=== PATIENT | female | born 1935 | race Caucasian/White ===

== ENCOUNTER 2016-11-23 13:16 | Inpatient (IN) ==
[2016-11-23 15:11] LABS: Bilirubin,Urine Negative (Negative); Blood,Urine Trace (Negative); Clarity,Urine Clear (Clear); Color,Urine Yellow (Yellow); Glucose,Urine (UA) Normal (Normal); Ketones,Urine Trace mg/dL (Negative); Leukocyte Esterase,Urine Small (Negative); Nitrite,Urine Negative (Negative); Protein,Urine Negative (Neg-Trace); Specific Gravity,Urine 1.011 (1.010-1.025); Urobilinogen,Urine Normal (Normal)
[2016-11-23 15:17] LABS: Bacteria,Urine Many per hpf (None-Few); Hyaline Casts,Urine None Seen per lpf (None-Few); RBC,Urine 0-3 per hpf (0-3); Squamous Epithelial Cell,Urine Moderate per lpf (None-Few)
[2016-11-23 15:21] LABS: Basophils % 0.1 %; Eosinophils % 0.1 %; Hematocrit 36.5 % (35.3-44.9); Hemoglobin 13.1 g/dL (11.5-15.4); Immature Granulocytes % 0.6 % (0-4); Lymphocytes # 1.6 K/mcL (0.6-4.6); Lymphocytes % 19.7 %; Mean Corpuscular HGB Conc 35.9 g/dL (31.6-35.5); Mean Corpuscular Hemoglobin 32.5 pg (28.0-33.3); Mean Corpuscular Volume 90.6 fL (83.0-100.0); Monocytes # 0.8 K/mcL (0.0-1.3); Monocytes % 9.8 %; Neutrophils # 5.7 K/mcL (1.6-8.9); Nucleated Red Blood Cells 0.2 /100 WBC (0); Platelet Count 308 K/mcL (140-400); Red Blood Count 4.03 M/mcL (3.82-4.97); Red Cell Distribution Width 12.3 % (11.5-14.5); Segmented Neutrophils % 69.7 %
[2016-11-23 15:25] LABS: Alanine Aminotransferase 14 Units/L (0-55); Albumin 3.6 g/dL (3.5-5.0); Albumin/Globulin Ratio 1.1 (1.1-2.2); Alkaline Phosphatase 93 Units/L (38-126); Aspartate Amino Transferase 20 Units/L (5-34); BUN/Creatinine Ratio 17 (6-26); Bilirubin,Direct 0.4 mg/dL (0.0-0.5); Bilirubin,Indirect 0.6 mg/dL (0.0-1.2); Blood Urea Nitrogen 13 mg/dL (7-20); Calcium 8.9 mg/dL (8.6-10.8); Carbon Dioxide 23 mEq/L (19-29); Chloride 84 mEq/L (98-109); Globulin 3.3 g/dL (2.4-3.5); Glucose 99 mg/dL (70-99); Osmolality,Calculated 240 (280-300); Potassium 3.5 mEq/L (3.5-4.5); Total Protein 6.9 g/dL (6.0-8.3); eGFR For African Americans > 60 (> 60); eGFR For Non-African Americans > 60 (> 60)
[2016-11-23 15:26] LABS: Lipase < 10 Units/L (8-78); Sodium 115 mEq/L (136-145)
[2016-11-23] MEDS ORDERED: *HR* FentaNYL (PF) 100 MCG/2 ML VIAL IVP ONE (15:35)
[2016-11-23 15:40] LABS: INR 1.7; Prothrombin Time 19.1 Seconds (9.4-12.1)
[2016-11-23 15:43] LABS: Activated Partial Thrombo Time 34.5 Seconds (26.0-36.0)
--- NOTE | 2016-11-23 17:22 | Emergency Department Note ---
Disposition Clinical Impression: Hyponatremia, Shortness of breath Volume overload Qualifiers: Hypervolemia type: unspecified Qualified Code(s): E87.70 - Fluid overload, unspecified Congestive heart failure Qualifiers: Congestive heart failure type: unspecified congestive heart failure type Congestive heart failure chronicity: acute on chronic Qualified Code(s): I50.9 - Heart failure, unspecified Disposition: Admitted As Inpatient Condition: Good Time of Disposition: 18:00 Abdominal Pain HPI - General Chief Complaint: ED Abdominal Pain Stated Complaint: abd pain Time Seen by Provider: 11/23/16 13:20 Source: patient, EMS Mode of arrival: ambulatory Limitations: no limitations Nursing Notes Reviewed: Yes Vital Signs Reviewed: Yes - History of Present Illness HPI Narrative: Patient presents to the generalized malaise and abdominal pain. She has been seen several times over the last couple days for dental discomfort was found to have a nonobstructing renal calculi. She feels like she still has the kidney stone at this point. Patient denies fevers chills chest pain headache or vision change. She has felt like she did use her oxygen more at home at this time. Patient does have underlying congestive heart failure. Denies any trauma or injuries at this time. Pt Subjective Complaint: abdominal pain Onset (ago): day(s) Consistency: constant Location: diffuse Pain Severity: mild Pain Scale: 2 Quality: cramping, aching Radiation: RLQ Migration to: no migration Improves with: nothing Worsens with: movement Context: history of similar episodes Associated symptoms: Reports: nausea, chills Treatments prior to arrival: none - Related Data Home Medications Medication Instructions Recorded Confirmed Celecoxib [Celebrex] 200 mg PO DAILY 02/17/15 11/23/16 Clopidogrel [Plavix] 75 mg PO DAILY 02/17/15 11/23/16 HydrALAZINE 25 mg PO BID 02/17/15 11/23/16 Isosorbide MONOnitrate (24 HR) 90 mg PO DAILY 02/17/15 11/23/16 [Imdur] Losartan [Cozaar] 100 mg PO DAILY 02/17/15 11/23/16 Metoprolol XL (24 HR) Succ [Toprol 50 mg PO BID 02/17/15 11/21/16 XL] Omeprazole [PriLOSEC] 20 mg PO BID 02/17/15 11/23/16 Pravastatin Sodium [Pravachol] 20 mg PO DAILY 02/17/15 11/23/16 Trevor-3 Fatty Acids [Fish Oil] 600 mg PO DAILY 11/21/16 11/23/16 Diltiazem HCl [Diltiazem 24Hr Cd] 180 mg PO DAILY 11/23/16 11/23/16 Furosemide [Lasix] 40 mg PO DAILY 11/23/16 11/23/16 Warfarin [Coumadin] 1 mg PO SUMOTUWEFRSA 11/23/16 11/23/16 Warfarin [Coumadin] 2 mg PO TH 11/23/16 11/23/16 Previous Rx's Medication Instructions Recorded Oxygen 2 l .ROUTE PRN PRN 30 Days 03/04/15 Sotalol [Betapace] 80 mg PO Q12HR #60 tablet 03/04/15 Clotrimazole/Betamethasone Dip 15 gm TP BID #1 cream..g. 11/21/16 [Lotrisone Cream] HYDROcodone/Acet 5/325 mg [[place] 1 tab PO Q6H PRN #12 tab 11/21/16 5-325 mg] Promethazine [Phenergan] 12.5 mg PO Q6HR PRN #12 tablet 11/21/16 Allergies Allergy/AdvReac Type Severity Reaction Status Date / Time codeine Allergy Rash Verified 11/21/16 11:27 morphine Allergy Rash Verified 11/21/16 11:27 Penicillins Allergy Rash Verified 11/21/16 11:27 meperidine [From Demerol] AdvReac Hallucinati Verified 11/21/16 11:27 ng All systems ED: reviewed and negative except as stated. Constitutional: Denies: fever, chills Cardiovascular: Reports: dyspnea on exertion, orthopnea, edema. Denies: chest pain, palpitations Respiratory: Reports: dyspnea. Denies: wheezes Gastrointestinal: Reports: abdominal pain, nausea. Denies: vomiting, diarrhea Genitourinary: Denies: dysuria, frequency Musculoskeletal: Denies: back pain, neck pain Neurological: Denies: headache Psychiatric: Denies: anxiety Endocrine: Denies: fatigue Abdominal Pain PMH - Past Medical History Medical history: Reports: atrial fibrillation, glaucoma, hypertension, kidney stones, renal disease Female Surgical History: Reports: cholecystectomy, hysterectomy Psychiatric history: Reports: no psych history - Social History Smoking status: Never smoker Alcohol use: Reports: none Drug use: Reports: none Physical Exam - General Limitations: no limitations General appearance: alert, in no apparent distress - Chest Chest inspection: Present: normal inspection, symmetric chest wall rise - Respiratory Respiratory exam: Present: normal lung sounds bilaterally, respiratory distress , accessory muscle use. Absent: wheezes, stridor - Cardiovascular Cardiovascular exam: Present: regular rate, normal rhythm, normal heart sounds - Abdominal Exam Abdominal exam: Present: soft, Non-Tender, normal bowel sounds. Absent: tenderness, distention, guarding, rebound, rigidity, obturator sign, heel tap sign, Bradford's sign, Rovsing's sign, tenderness at McBurney's Point, pulsatile mass - Extremities Exam Extremities exam: Present: normal inspection, full ROM, normal capillary refill - Back Exam Back exam: Present: normal inspection, full ROM. Absent: tenderness, CVA tenderness (R), CVA tenderness (L) - Neurological Exam Neurological exam: Present: alert, oriented X3, CN II-XII intact, normal gait - Skin Skin exam: Present: warm, dry, intact, normal color Course Course Narrative: Patient seen and examined the time of arrival. See history of present illness. Vital signs reviewed and are stable. Patient resting in the bed on presentation. Patient does appear to have some generalized malaise. Patient has been seen 3 times in the last 2 days her abdominal discomfort secondary to renal calculi. She has been increasing her fluid intake at home and resume medication as prescribed. Patient denies any fevers chills chest pain headache vision changes nausea vomiting or diarrhea at this point. Patient does describe some shortness of breath. 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 Patient has been requiring to use oxygen several times a day at this point is of increased work of breathing and shortness of breath. On my physical exam patient does appear to be visibly short of breath. Patient does have a history of CHF. Lungs clear to auscultation. Increased work of breathing noted on exam. Patient had chest x-ray EKG BNP and troponin CBC and chemistry panel completed. CT imaging of the abdomen observed. Fluids were held at this time the pain medication nausea medication (. My concern is that she fluid overload with CHF exacerbation at this point. Patient had what she described as a 2 mm nonobstructing stone previously on CAT scan. Patient is slightly uncomfortable in the bed at this point my concern is for respiratory related issues. We will continue to monitor and treat as appropriate. Disposition pending this workup and treatment course. - Reevaluation(s) Reevaluation #1: Patient found to be profoundly hyponatremic. CT imaging shows resolution of the renal stone no signs of hydronephrosis or infection. Patient does have bilateral pleural effusions consistent with pulmonary edema and fluid overload. Consultation placed out to the hospitalist for admission process. Discussed the findings imaging intervention and workup in the emergency room in detail. Dr. robles and I reviewed the patient's symptoms presentation and history. His only recommendation at this time is to start the patient with a 40 mg bolus of Lasix here in the ED. No other clinical management needed or required at this point. Patient's vital signs been stable throughout the course of care she is mentating appropriatelyand seizure-like activity. EKG labs and imaging were all reviewed with no other acute pathology. Patient will be observed in the emergency room to the admission process is completed. However acute issues noted at this time. Family and patient informed and they are comfortable with the plan and understand our disposition and treatment course. Time: 20:06 Vital Signs Temperature 98.3 F 11/23/16 13:17 Pulse Rate 81 11/23/16 13:17 Respiratory Rate 18 11/23/16 13:17 Blood Pressure 192/75 11/23/16 13:17 O2 Sat by Pulse Oximetry 97 11/23/16 13:17 Temperature 97.6 F 11/23/16 19:14 Pulse Rate 98 11/23/16 19:14 Respiratory Rate 20 11/23/16 19:14 Blood Pressure 162/74 11/23/16 19:14 O2 Sat by Pulse Oximetry 98 11/23/16 19:14 Oxygen Delivery Oxygen Delivery Nasal Cannula Abdominal Pain - MDM Narrative Medical decision making narrative: Hyponatremia, congestive heart failure, fluid overload - Medical Records Medical records reviewed: Yes I reviewed the patient's medical records. - Lab Data Lab results reviewed: Yes I reviewed the patient's lab results. Result diagrams: 11/23/16 15:12 11/23/16 15:12 Lab Results 11/23/16 11/23/16 11/23/16 Range/Units 14:30 15:00 15:00 WBC (4.3-11.1) K/mcL RBC (3.82-4.97) M/mcL Hgb (11.5-15.4) g/dL Hct (35.3-44.9) % MCV (83.0-100.0) fL MCH (28.0-33.3) pg MCHC (31.6-35.5) g/dL RDW (11.5-14.5) % Plt Count (140-400) K/mcL MPV (9.4-12.4) fL Immature Gran % (0-4) % Seg Neutrophils % % Lymphocytes % % Monocytes % % Eosinophils % % Basophils % % Neutrophils # (1.6-8.9) K/mcL Lymphocytes # (0.6-4.6) K/mcL Monocytes # (0.0-1.3) K/mcL Eosinophils # (0.0-0.6) K/mcL Basophils # (0.0-0.2) K/mcL Nucleated RBCs/100 WBC (0) /100 WBC Immature Plt Fraction (1.1-6.1) % PT (9.4-12.1) Seconds INR APTT (26.0-36.0) Seconds Sodium (136-145) mEq/L Potassium (3.5-4.5) mEq/L Chloride (98-109) mEq/L Carbon Dioxide (19-29) mEq/L BUN (7-20) mg/dL Creatinine (0.57-1.11) mg/dL Est GFR ( Amer) (> 60) Est GFR (Non-Af Amer) (> 60) BUN/Creatinine Ratio (6-26) Glucose (70-99) mg/dL Calculated Osmolality (280-300) Calcium (8.6-10.8) mg/dL Total Bilirubin (0.2-1.2) mg/dL Direct Bilirubin (0.0-0.5) mg/dL Indirect Bilirubin (0.0-1.2) mg/dL AST (5-34) Units/L ALT (0-55) Units/L Alkaline Phosphatase (38-126) Units/L Troponin I (0-0.03) ng/mL B-Natriuretic Peptide (0-100) pg/mL Serum Total Protein (6.0-8.3) g/dL Albumin (3.5-5.0) g/dL Globulin (2.4-3.5) g/dL Albumin/Globulin Ratio (1.1-2.2) Lipase (8-78) Units/L Urine Color Yellow (Yellow) Urine Clarity Clear (Clear) Urine pH 6.0 (5.0-8.0) pH Units Ur Specific [place] 1.011 (1.010-1.025) Urine Protein Negative (Neg-Trace) mg/dL Urine Glucose (UA) Normal (Normal) mg/dL Urine Ketones Trace H (Negative) mg/dL Urine Blood Trace H (Negative) Urine Nitrite Negative (Negative) Urine Bilirubin Negative (Negative) Urine Urobilinogen Normal (Normal) mg/dL Ur Leukocyte Esterase Small H (Negative) Urine Microscopic RBC 0-3 (0-3) per hpf Urine Microscopic WBC 5-15 H (0-3) per hpf Ur Squamous Epith Cells Moderate H (None-Few) per lpf Urine Bacteria Many H (None-Few) per hpf Hyaline Casts None Seen (None-Few) per lpf Ur Culture Indicated? YES A (NO) Urine Test Negative (Negative) Specimen Rejected MCV Delta 11/23/16 11/23/16 11/23/16 Range/Units 15:12 15:12 15:12 WBC 8.2 (4.3-11.1) K/mcL RBC 4.03 (3.82-4.97) M/mcL Hgb 13.1 (11.5-15.4) g/dL Hct 36.5 (35.3-44.9) % MCV 90.6 D (83.0-100.0) fL MCH 32.5 (28.0-33.3) pg MCHC 35.9 H (31.6-35.5) g/dL RDW 12.3 (11.5-14.5) % Plt Count 308 (140-400) K/mcL MPV 9.0 L (9.4-12.4) fL Immature Gran % 0.6 (0-4) % Seg Neutrophils % 69.7 % Lymphocytes % 19.7 % Monocytes % 9.8 % Eosinophils % 0.1 % Basophils % 0.1 % Neutrophils # 5.7 (1.6-8.9) K/mcL Lymphocytes # 1.6 (0.6-4.6) K/mcL Monocytes # 0.8 (0.0-1.3) K/mcL Eosinophils # 0.0 (0.0-0.6) K/mcL Basophils # 0.0 (0.0-0.2) K/mcL Nucleated RBCs/100 WBC 0.2 H (0) /100 WBC Immature Plt Fraction 5.0 (1.1-6.1) % PT 19.1 H (9.4-12.1) Seconds INR 1.7 APTT 34.5 (26.0-36.0) Seconds Sodium 115 L* D (136-145) mEq/L Potassium 3.5 D (3.5-4.5) mEq/L Chloride 84 L D (98-109) mEq/L Carbon Dioxide 23 (19-29) mEq/L BUN 13 (7-20) mg/dL Creatinine 0.78 (0.57-1.11) mg/dL Est GFR ( Amer) > 60 (> 60) Est GFR (Non-Af Amer) > 60 (> 60) BUN/Creatinine Ratio 17 (6-26) Glucose 99 (70-99) mg/dL Calculated Osmolality 240 L (280-300) Calcium 8.9 (8.6-10.8) mg/dL Total Bilirubin 1.0 D (0.2-1.2) mg/dL Direct Bilirubin 0.4 (0.0-0.5) mg/dL Indirect Bilirubin 0.6 (0.0-1.2) mg/dL AST 20 (5-34) Units/L ALT 14 (0-55) Units/L Alkaline Phosphatase 93 (38-126) Units/L Troponin I (0-0.03) ng/mL B-Natriuretic Peptide (0-100) pg/mL Serum Total Protein 6.9 (6.0-8.3) g/dL Albumin 3.6 (3.5-5.0) g/dL Globulin 3.3 (2.4-3.5) g/dL Albumin/Globulin Ratio 1.1 (1.1-2.2) Lipase < 10 (8-78) Units/L Urine Color (Yellow) Urine Clarity (Clear) Urine pH (5.0-8.0) pH Units Ur Specific [place] (1.010-1.025) Urine Protein (Neg-Trace) mg/dL Urine Glucose (UA) (Normal) mg/dL Urine Ketones (Negative) mg/dL Urine Blood (Negative) Urine Nitrite (Negative) Urine Bilirubin (Negative) Urine Urobilinogen (Normal) mg/dL Ur Leukocyte Esterase (Negative) Urine Microscopic RBC (0-3) per hpf Urine Microscopic WBC (0-3) per hpf Ur Squamous Epith Cells (None-Few) per lpf Urine Bacteria (None-Few) per hpf Hyaline Casts (None-Few) per lpf Ur Culture Indicated? (NO) Urine Test (Negative) Specimen Rejected 11/23/16 11/23/16 Range/Units 15:12 15:12 WBC (4.3-11.1) K/mcL RBC (3.82-4.97) M/mcL Hgb (11.5-15.4) g/dL Hct (35.3-44.9) % MCV (83.0-100.0) fL MCH (28.0-33.3) pg MCHC (31.6-35.5) g/dL RDW (11.5-14.5) % Plt Count (140-400) K/mcL MPV (9.4-12.4) fL Immature Gran % (0-4) % Seg Neutrophils % % Lymphocytes % % Monocytes % % Eosinophils % % Basophils % % Neutrophils # (1.6-8.9) K/mcL Lymphocytes # (0.6-4.6) K/mcL Monocytes # (0.0-1.3) K/mcL Eosinophils # (0.0-0.6) K/mcL Basophils # (0.0-0.2) K/mcL Nucleated RBCs/100 WBC (0) /100 WBC Immature Plt Fraction (1.1-6.1) % PT (9.4-12.1) Seconds INR APTT (26.0-36.0) Seconds Sodium (136-145) mEq/L Potassium (3.5-4.5) mEq/L Chloride (98-109) mEq/L Carbon Dioxide (19-29) mEq/L BUN (7-20) mg/dL Creatinine (0.57-1.11) mg/dL Est GFR ( Amer) (> 60) Est GFR (Non-Af Amer) (> 60) BUN/Creatinine Ratio (6-26) Glucose (70-99) mg/dL Calculated Osmolality (280-300) Calcium (8.6-10.8) mg/dL Total Bilirubin (0.2-1.2) mg/dL Direct Bilirubin (0.0-0.5) mg/dL Indirect Bilirubin (0.0-1.2) mg/dL AST (5-34) Units/L ALT (0-55) Units/L Alkaline Phosphatase (38-126) Units/L Troponin I 0.02 (0-0.03) ng/mL B-Natriuretic Peptide 442 H (0-100) pg/mL Serum Total Protein (6.0-8.3) g/dL Albumin (3.5-5.0) g/dL Globulin (2.4-3.5) g/dL Albumin/Globulin Ratio (1.1-2.2) Lipase (8-78) Units/L Urine Color (Yellow) Urine Clarity (Clear) Urine pH (5.0-8.0) pH Units Ur Specific [place] (1.010-1.025) Urine Protein (Neg-Trace) mg/dL Urine Glucose (UA) (Normal) mg/dL Urine Ketones (Negative) mg/dL Urine Blood (Negative) Urine Nitrite (Negative) Urine Bilirubin (Negative) Urine Urobilinogen (Normal) mg/dL Ur Leukocyte Esterase (Negative) Urine Microscopic RBC (0-3) per hpf Urine Microscopic WBC (0-3) per hpf Ur Squamous Epith Cells (None-Few) per lpf Urine Bacteria (None-Few) per hpf Hyaline Casts (None-Few) per lpf Ur Culture Indicated? (NO) Urine Test (Negative) Specimen Rejected - Radiology Data Radiology results reviewed: Yes I reviewed the patient's radiology results. Chest x-ray stable except for pulmonary congestion bilateral pleural effusion noted on CT scan. No signs of renal calculi or obstruction on CT imaging - EKG Data EKG attestation: Yes I reviewed and interpreted this EKG. EKG shows normal: sinus rhythm, axis, intervals, QRS complexes, ST-T waves Rate: normal Rhythm: NSR Critical Care Time Critical Care Time: Yes Total Critical Care Time: 35 Attestation: Independent medical management and intervention treatment course for profound hyponatremia and fluid overload
[2016-11-23] MEDS ORDERED: Furosemide 40 MG in 0.9 % Sodium Chloride 50 ML IVPB ONE (17:31)
[2016-11-23] MEDS ORDERED: Furosemide 40 MG/4 ML VIAL IVP ONE (17:43)
[2016-11-23] MEDS ORDERED: Ondansetron ODT 4 MG TAB.RAPDIS SL PRN (20:41)
[2016-11-23] MEDS ORDERED: Naloxone 0.4 MG/ML INJ IVP PRN (20:41)
--- NOTE | 2016-11-23 21:01 | Internal Med History&Physical ---
<Christian Almanza - Last Filed: 11/24/16 01:51> Date of Encounter: 11/23/16 Time of Encounter: 20:38 Assessment and Plan (1) Hyponatremia Current visit: Yes Status: Acute 81-year-old female admitted with abdominal discomfort, difficulty with ambulation, blurry vision mild confusion. - Admitting sodium level 115, this is the lowest of her previous sodiums with a low in the last 6 months of 124. - All medications reviewed of note she is on sotalol for rate control and 40 Lasix by mouth once a day - She received IV Lasix in the emergency department prior to transfer to the floor. - Bedside EKG obtained: Demonstrate normal sinus rhythm and rates, appropriate access no OR prolongation or QT widening. QTC is 427. 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 - Currently stable - Follows with [place] cardiology Plan: -Continue home cardiac medications and aspirin and Plavix. Qualifiers: Coronary Disease-Associated Artery/Lesion type: [place] artery [place] vs. transplanted heart: [place] heart Associated angina: without angina Qualified Code(s): I25.10 - Atherosclerotic heart disease of [place] coronary artery without angina pectoris (3) Hypertension Current visit: Yes Status: Chronic Patient has known history of hypertension, admitted with elevated blood pressure. Plan: - Continue home dose hydralazine by mouth - Ray control medications diltiazem and sotalol - continue losartan . Qualifiers: Hypertension type: essential hypertension Qualified Code(s): I10 - Essential (primary) hypertension (4) Hyperlipidemia Current visit: No Status: Chronic Known history of hyperlipidemia. Stable. Qualifiers: Hyperlipidemia type: unspecified Qualified Code(s): E78.5 - Hyperlipidemia , unspecified (5) ICD (implantable cardioverter-defibrillator) in place Current visit: No Status: Acute History of ICD placement, follows with cardiology. Recent device check. 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 - Last primary function test performed March 2015 demonstrates restrictive lung disease - Follows with [facility] - Patient's baseline oxygen is 2 L nasal cannula at rest and at night. - stable - continue oxygen as required (7) Abdominal pain Current visit: Yes Status: Acute Patient presented with abdominal discomfort, recent history of renal calculi. Abdominal CT imaging did not demonstrate any findings of renal calculi. Urinalysis is appropriate, creatinine and GFR are appropriate. - Abdominal CT without any significant findings. Plan: - Treat hyponatremia - Patient complaining of back pain more than abdominal discomfort. Qualifiers: Qualified Code(s): R10.9 - Unspecified abdominal pain (8) Congestive heart failure Current visit: Yes Status: Acute Patient is a documented history of congestive heart failure and is on Lasix along with optimized cardiac therapy. - No recent echocardiogram found - Appears slightly fluid overloaded, BNP is roughly 400. Plan: - Continue optimizing cardiac medications - Hold Lasix with hyponatremia - Patient receiving IV fluids with hyponatremia for sodium correction. Qualifiers: Congestive heart failure type: unspecified congestive heart failure type Congestive heart failure chronicity: acute on chronic Qualified Code(s): I50.9 - Heart failure, unspecified (9) Paroxysmal atrial fibrillation Current visit: Yes Status: Acute Patient has a history of proximal atrial fibrillation, currently normal sinus rhythm. currently rate controlled with sotalol and Cardizem. - Anticoagulation with warfarin, currently subtherapeutic with INR 1.7. Plan: - Pharmacy to dose warfarin - PT/INR - Continue rate control (10) DVT prophylaxis Current visit: Yes Status: Acute Patient on warfarin therapy, SCDs Internal Medicine - H&P: HPI Admitted From: Emergency Dept Plans for Post Hospital Care: Home History of present illness: Ms. Csatro is a 81 year old female admitted through the emergency department with abdominal pain. Patient states that she was seen in [place] emergency department on Monday and was told she had a right-sided renal stone. Since discharge from the emergency department on Monday she developed weakness and unsteadiness and abnormal gait, blurry vision and difficulty with thought process. She states that she is steadily been getting worse since Monday. She has been compliant with her home medications and denies any recent changes in her current medications. She said her current symptoms are new when she has never experienced any like this before. She has a history of low sodium. Her home dose of Lasix has been consistent and she sees cardiology Dr. Valdovinos. She has pacemaker/defibrillator which she is having difficulty remembering why it was placed but some arrhythmia. She has known history of coronary artery disease and renal artery stenosis. History of high blood pressure and proximal atrial fibrillation. 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 Currently she is rate controlled with sotalol. She denies any real abdominal pain but says she has feels abnormal all over. She said her abdominal pain has improved significantly since Monday and was told that she no longer has stone. She denies any fevers, chills, sweating, recent illnesses or infections. She has any changes to her medications, has been staying hydrated at home. She denies walking with any assist devices but said that she had been so unsteady that she would collapse and has been unable to make it to the bathroom. Past Med Surg Social Fam HX - Past Medical History Medical history: atrial fibrillation, glaucoma, hypertension, kidney stones, renal disease Psychiatric history: no psych history - Past Surgical History Surgical History: cholecystectomy, hysterectomy - Social History Smoking Status: Never smoker Smokeless Tobacco Status: No Alcohol use: none Drug use: none - Family History Father Adopted: No Family Member Ethnicity: Non- Living Status: Age at : 63 Cause of : [place] Hx Family Cardiac Disorders: Yes ([place], HTN) Hx Family Respiratory Disorders: No Hx Family Cancer: No Hx Family GI Disorders: Yes (Ulcers) Hx Family Genitourinary Disorders: No Hx Family Endocrine Disorder: No Hx Family Musculoskeletal Disorders: No Hx Family Neuromuscular Disorders: No Hx Family Neurologic Disorders: Yes (stroke) Hx Family HEENT Disorders: No Hx Family Autoimmune Disorders: No Hx Family Reproductive Disorders: No Hx Family Psychosocial Disorders: No Hx Family Medical Disorders: No Mother Adopted: No Family Member Ethnicity: Non- Living Status: Hx Family Cardiac Disorders: No Hx Family Respiratory Disorders: No Hx Family Cancer: No Hx Family GI Disorders: Yes Hx Family Endocrine Disorder: No Hx Family Neuromuscular Disorders: No Hx Family Neurologic Disorders: No Hx Family Autoimmune Disorders: No Internal Medicine - H&P: Meds Celecoxib [Celebrex] 200 mg PO DAILY 02/17/15 [History] Clopidogrel [Plavix] 75 mg PO DAILY 02/17/15 [History] HydrALAZINE 25 mg PO BID 02/17/15 [History] Isosorbide MONOnitrate (24 HR) [Imdur] 90 mg PO DAILY 02/17/15 [History] Losartan [Cozaar] 100 mg PO DAILY 02/17/15 [History] Metoprolol XL (24 HR) Succ [Toprol XL] 50 mg PO BID 02/17/15 [History] Omeprazole [PriLOSEC] 20 mg PO BID 02/17/15 [History] Pravastatin Sodium [Pravachol] 20 mg PO DAILY 02/17/15 [History] Oxygen 2 l .ROUTE PRN PRN 30 Days 03/04/15 [Rx] Sotalol [Betapace] 80 mg PO Q12HR #60 tablet 03/04/15 [Rx] Clotrimazole/Betamethasone Dip [Lotrisone Cream] 15 gm TP BID #1 cream..g. 11/21 [Rx] HYDROcodone/Acet 5/325 mg [Scurry 5-325 mg] 1 tab PO Q6H PRN #12 tab 11/21/16 [Rx ] Clever-3 Fatty Acids [Fish Oil] 600 mg PO DAILY 11/21/16 [History] Promethazine [Phenergan] 12.5 mg PO Q6HR PRN #12 tablet 11/21/16 [Rx] Diltiazem HCl [Diltiazem 24Hr Cd] 180 mg PO DAILY 11/23/16 [History] Furosemide [Lasix] 40 mg PO DAILY 11/23/16 [History] Warfarin [Coumadin] 1 mg PO SUMOTUWEFRSA 11/23/16 [History] Warfarin [Coumadin] 2 mg PO TH 11/23/16 [History] Allergies codeine Allergy (Verified 11/21/16 11:27) Rash morphine Allergy (Verified 11/21/16 11:27) Rash Penicillins Allergy (Verified 11/21/16 11:27) Rash meperidine [From Demerol] Adverse Reaction (Verified 11/21/16 11:27) Hallucinating All Systems PM: A 10-system review of systems was performed and is negative for pertinent findings except as documented above in the HPI. - Constitutional Constitutional: fatigue, falls, lethargy, malaise, no night sweats - EENT Eyes: blurry vision, change in vision, no diplopia, no loss of peripheral vision , no loss of vision, no photophobia, no tunnel vision Ears: no ear pain Nose, mouth and throat: no dry mouth, no dysphagia, no facial pain, no lip swelling, no neck pain, no sore throat - Cardiovascular Cardiovascular ROS IM: dyspnea, edema, no chest pain, no claudication, no diaphoresis, no orthopnea - Respiratory Respiratory: no cough, no wheezing, no chest congestion - Gastrointestinal Gastrointestinal: no constipation, no diarrhea, no excessive flatus, no hematochezia, no loose stools - Genitourinary Genitourinary: no dysuria, no hematuria, no urinary frequency - Musculoskeletal Musculoskeletal ROS IM: muscle weakness - Integumentary Integumentary IM: no erythema - Neurological Neurological ROS: abnormal gait, confusion, dizziness, frequent falls, no focal weakness - Constitutional Vitals: Temp Pulse Resp BP Pulse Ox 97.6 F 98 20 162/74 98 11/23/16 19:14 11/23/16 19:14 11/23/16 19:14 11/23/16 19:14 11/23/16 19:14 Exam: General: Patient alert, awake, oriented 3, difficulty with thought process, interactive, in no acute distress HEENT: Normocephalic, atraumatic, pupils equal reactive to light, nasal cavity patent and open septum median position, oral mucosa moist, uvula midline, neck supple trachea midline no palpable lymphadenopathy, no thyromegaly. Chest: Symmetric bilateral correlating with respiratory effort, effort nonlabored. Cardiac: Regular rate and rhythm, low-grade systolic ejection murmur, no bruits appreciated bilateral carotids, Radial pulses 2+ bilateral, posterior tibial and dorsal pedal pulses 2+ bilateral. Respiratory: Clear to auscultation all lung louise Abdomen: Soft, nontender, positive bowel sounds, no palpable masses appreciated on examination Extremities: Symmetric bilateral, bilateral lower extremities trace edema patient moving all 4 extremities spontaneously. Neurologic: No focal deficits appreciated on examination. Face symmetric, muscle strength symmetric bilateral upper and lower extremities. 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 Castro is a 81 year old female All Systems PM: A 10-system review of systems was performed and is negative for pertinent findings except as documented above in the HPI. - Constitutional Vitals: Temp Pulse Resp BP Pulse Ox 97.4 F L 63 20 165/57 97 11/24/16 04:23 11/24/16 06:00 11/24/16 06:00 11/24/16 06:00 11/24/16 06:00 Internal Med - H&P Results - Labs CBC & Chem 7: 11/24/16 01:39 11/24/16 01:39 Labs: Short CBC 11/24/16 Range/Units 01:39 WBC 9.4 (4.3-11.1) K/mcL Hgb 13.2 (11.5-15.4) g/dL Hct 36.7 (35.3-44.9) % Plt Count 260 (140-400) K/mcL Neutrophils # 6.2 (1.6-8.9) K/mcL BMP 11/23/16 11/24/16 21:03 01:39 Sodium 116 L* 119 L* Potassium 3.0 L 3.1 L Chloride 82 L 85 L Carbon Dioxide 22 23 BUN 13 13 Creatinine 0.78 0.81 Glucose 101 H 82 Calcium 8.7 8.7 Liver Function 11/24/16 Range/Units 01:39 Total Bilirubin 0.9 (0.2-1.2) mg/dL AST 29 (5-34) Units/L ALT 12 (0-55) Units/L Alkaline Phosphatase 90 (38-126) Units/L Albumin 3.6 (3.5-5.0) g/dL - EKG Data -: EKG Interpreted by Myself - Diagnostic Studies CT scan - abdomen Status: image reviewed by me Chest x-ray Status: image reviewed by me - Attending Attestation Patient has critical illness, with multiple vital organ impairment; mainly brain , cardiac and renal with a high probability of imminent or life threatening deterioration in her condition. I performed critical intervention, involving high complexity decision making to assess, manipulate, and support vital organ system failure; and I spent about 50 minutes engaged in work directly related to the patient's care at her immediate bedside and also on the unit, part of this time was also spent counseling immediate family, that time was spent at the immediate bedside or elsewhere on the floor and unit. Critical care time: 50 minutes Diego Lowe MD, MPH Hospitalist
[2016-11-23] MEDS: Ondansetron 4 MG/2 ML VIAL IVP PRN (21:09)
[2016-11-23] MEDS: 0.9 % Sodium Chloride 1,000 ML IVC SCH (21:10)
[2016-11-23] MEDS ORDERED: *HR* HYDROcodone/Acet 5/325 mg TABLET PO PRN (21:14)
[2016-11-23 21:19] LABS: Magnesium 1.4 mg/dL (1.6-2.6); Phosphorous 2.8 mg/dL (2.3-4.7)
[2016-11-23] MEDS: Acetaminophen 325 MG TABLET PO PRN (21:24)
[2016-11-23 21:29] LABS: Sodium 116 mEq/L (136-145)
[2016-11-23 21:54] LABS: BUN/Creatinine Ratio 17 (6-26); Blood Urea Nitrogen 13 mg/dL (7-20); Calcium 8.7 mg/dL (8.6-10.8); Carbon Dioxide 22 mEq/L (19-29); Chloride 82 mEq/L (98-109); Glucose 101 mg/dL (70-99); Osmolality,Calculated 242 (280-300); eGFR For African Americans > 60 (> 60); eGFR For Non-African Americans > 60 (> 60)
[2016-11-24 01:47] LABS: INR 1.5; Prothrombin Time 16.3 Seconds (9.4-12.1)
[2016-11-24 01:53] LABS: BUN/Creatinine Ratio 16 (6-26); Blood Urea Nitrogen 13 mg/dL (7-20); Calcium 8.7 mg/dL (8.6-10.8); Carbon Dioxide 23 mEq/L (19-29); Chloride 85 mEq/L (98-109); Glucose 82 mg/dL (70-99); Osmolality,Calculated 247 (280-300); Potassium 3.1 mEq/L (3.5-4.5); eGFR For African Americans > 60 (> 60); eGFR For Non-African Americans > 60 (> 60)
[2016-11-24 01:54] LABS: Sodium 119 mEq/L (136-145)
[2016-11-24 02:03] LABS: Alkaline Phosphatase 90 Units/L (38-126); Aspartate Amino Transferase 29 Units/L (5-34); Basophils % 0.1 %; Bilirubin,Total 0.9 mg/dL (0.2-1.2); Eosinophils % 0.3 %; Hematocrit 36.7 % (35.3-44.9); Hemoglobin 13.2 g/dL (11.5-15.4); Immature Granulocytes % 0.5 % (0-4); Lymphocytes # 1.8 K/mcL (0.6-4.6); Lymphocytes % 18.9 %; Mean Corpuscular Hemoglobin 32.5 pg (28.0-33.3); Mean Corpuscular Volume 90.4 fL (83.0-100.0); Mean Platelet Volume 9.3 fL (9.4-12.4); Monocytes # 1.3 K/mcL (0.0-1.3); Monocytes % 13.5 %; Neutrophils # 6.2 K/mcL (1.6-8.9); Platelet Count 260 K/mcL (140-400); Red Blood Count 4.06 M/mcL (3.82-4.97); Red Cell Distribution Width 12.4 % (11.5-14.5); Segmented Neutrophils % 66.7 %
[2016-11-24 02:04] LABS: Alanine Aminotransferase 12 Units/L (0-55); Albumin 3.6 g/dL (3.5-5.0)
[2016-11-24] MEDS: Acetaminophen 325 MG TABLET PO PRN ×2 (02:09→08:11)
[2016-11-24] MEDS ORDERED: Potassium Chloride Elixir 20 MEQ/15 ML UDC PO ONE (03:14)
[2016-11-24] MEDS: 0.9 % Sodium Chloride 1,000 ML IVC SCH (04:20)
[2016-11-24 06:56] LABS: BUN/Creatinine Ratio 16 (6-26); Blood Urea Nitrogen 12 mg/dL (7-20); Calcium 8.4 mg/dL (8.6-10.8); Carbon Dioxide 21 mEq/L (19-29); Chloride 90 mEq/L (98-109); Glucose 80 mg/dL (70-99); Osmolality,Calculated 251 (280-300); Potassium 4.2 mEq/L (3.5-4.5); Sodium 121 mEq/L (136-145); eGFR For African Americans > 60 (> 60); eGFR For Non-African Americans > 60 (> 60)
[2016-11-24 07:18] LABS: Thyroid Stimulating Hormone 1.344 mcIU/mL (0.350-4.840)
[2016-11-24] MEDS: Isosorbide MONOnitrate (24 HR) 30 MG TAB.ER.24H PO SCH (08:11)
[2016-11-24] MEDS: hydrALAZINE 25 MG TABLET PO SCH ×2 (08:12→20:08)
[2016-11-24] MEDS: Diltiazem CD (24hr) 180 MG CAPSULE PO SCH (08:12)
[2016-11-24] MEDS: Pantoprazole 40 MG VIAL IVP SCH (08:12)
[2016-11-24] MEDS: Celecoxib 200 MG CAPSULE PO SCH (08:26)
[2016-11-24 09:51] LABS: BUN/Creatinine Ratio 18 (6-26); Blood Urea Nitrogen 13 mg/dL (7-20); Calcium 8.1 mg/dL (8.6-10.8); Carbon Dioxide 21 mEq/L (19-29); Chloride 92 mEq/L (98-109); Glucose 85 mg/dL (70-99); Osmolality,Calculated 253 (280-300); Potassium 3.7 mEq/L (3.5-4.5); Sodium 122 mEq/L (136-145); eGFR For African Americans > 60 (> 60); eGFR For Non-African Americans > 60 (> 60)
[2016-11-24] MEDS: Clotrimazole/Betameth Dip CRM 45 APPL/45 GM TUBE TP SCH (11:49)
--- NOTE | 2016-11-24 11:52 | Electrocardiograph Report ---
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
--- NOTE | 2016-11-24 12:18 | Electrocardiograph Report ---
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
[2016-11-24] MEDS: *HR* OxyCODONE/APAP 5/325 TABLET PO PRN ×2 (12:24→20:08)
[2016-11-24 13:55] LABS: BUN/Creatinine Ratio 16 (6-26); Blood Urea Nitrogen 13 mg/dL (7-20); Calcium 8.3 mg/dL (8.6-10.8); Carbon Dioxide 19 mEq/L (19-29); Chloride 94 mEq/L (98-109); Glucose 115 mg/dL (70-99); Osmolality,Calculated 255 (280-300); Potassium 3.9 mEq/L (3.5-4.5); Sodium 122 mEq/L (136-145); eGFR For African Americans > 60 (> 60); eGFR For Non-African Americans > 60 (> 60)
--- NOTE | 2016-11-24 16:38 | Internal Med Progress Note ---
Addendum entered and electronically signed by Fred Castro DO 11/24/16 18: 11: Addendum to assessment and plan. Abdominal pain: Patient was recently diagnosed with renal calculi and has experienced abdominal discomfort associated with that diagnosis's. Abdominal CT imaging on admission did not demonstrate any current findings of renal calculi urinalysis is appropriate for this finding. The pain is more located in her back at this time. Pain medications help improve provided when necessary we will continue to monitor. Original Note: <Fred Castro - Last Filed: 11/24/16 18:09> Date of Encounter: 11/24/16 Time of Encounter: 09:30 - Assessment and plan (1) Hyponatremia Current Visit: Yes Status: Acute Assessment and plan: The patient presents to the emergency room with symptomatic hyponatremia including issues with confusion and disorientation, changes in each balance, and inability to focus. At that time her serum sodium was determined to be 116 by bmp. This is her in relation to previous sodiums and previous BMPs -In the emergency room she received IV Lasix prior to transfer to the floor. -Although initially determined to be probable SIADH, the etiology of his hyponatremia appears to be more mixed picture. The patient admits to drinking excessive amounts of water due to recommendation by the ER physician when she was diagnosed with renal calculi previously. She denies polydipsia at this time. Serum osmolality was 253 and urine osmolality was 215 this morning, and a specific gravity of 1.011, suggesting that this was not appear SIADH situation. -Patient is on strict intake and output monitoring and has maintained a -960 mL fluid balance. -Cardiac monitoring in place. BMPs every 4 hours. -IV fluids have been discontinued at this time. We will enforce a fluid restricted diet at 1500 mL per day, and resume normal diet. -We will aim for [place] of increasing sodium bicarbonate 8 every 24 hours. (2) Atrial fibrillation Current Visit: No Status: Chronic Assessment and plan: Patient has history of paroxysmal atrial fibrillation and is anticoagulated with warfarin. She currently has a subtherapeutic INR at 1.5. Warfarin is dosed by pharmacy was alerted of subtherapeutic INR and adjust dose accordingly. We will continue to monitor at this time. -Notably patient has remained in sinus rhythm throughout admission thus far. Qualifiers: Atrial fibrillation type: paroxysmal Qualified Code(s): I48.0 - Paroxysmal atrial fibrillation (3) Coronary artery disease Current Visit: No Status: Chronic Assessment and plan: Patient has known history of coronary artery disease, nonischemic cardiomyopathy , renal artery stenosis, and bilateral carotid stenosis. She is currently stable and follows with [place] [facility]. We will continue home cardiac medications of aspirin and Plavix Qualifiers: Coronary Disease-Associated Artery/Lesion type: [place] artery [place] vs. transplanted heart: [place] heart Associated angina: without angina Qualified Code(s): I25.10 - Atherosclerotic heart disease of [place] coronary artery without angina pectoris (4) Hypertension Current Visit: Yes Status: Chronic Assessment and plan: Patient has known history of hypertension, was admitted with high blood pressure. The patient's blood pressure has decreased to normal limits in the past 24 hours. We will continue her home dose of hydralazine by mouth as well as the medications diltiazem, sotalol, and losartan. Qualifiers: Hypertension type: essential hypertension Qualified Code(s): I10 - Essential (primary) hypertension (5) History of interstitial lung disease Current Visit: No Status: Chronic Assessment and plan: Patient admits to chronic lung injury due to medication with amiodarone in the past. She states that she has a baseline shortness of breath for which she follows [facility]. -Patient baseline oxygen is 2 L nasal cannula at rest and at night. We will continue this regimen as needed. (6) DVT prophylaxis Current Visit: Yes Status: Acute Assessment and plan: Patient is on SCDs - Subjective Interval history: Patient resting comfortably in bed and appears in no acute distress at time of examination this morning. She states that when she came to the ER she was feeling very woozy, lightheaded, confused, however she says that this is largely resolved. Patient was recently treated for small kidney stones, at which time the physician advised her to drink lots of water. At this time she said that she has urinating frequently and is not excessively thirsty. She does complain of back pain associated with laying in the bed. - Constitutional Vitals: Temp Pulse Resp BP Pulse Ox 98.3 F 59 18 126/47 96 11/24/16 11:38 11/24/16 15:00 11/24/16 15:00 11/24/16 15:00 11/24/16 15:00 - Head Head exam: Present: atraumatic, normocephalic - Eye Eye exam: Present: PERRL, conjuntiva pink, sclera anicteric Pupils: Present: PERRL - Neck Neck exam general surgery: Present: supple, trachea midline. Absent: lymphadenopathy - Respiratory Respiratory exam: Present: CTAB. Absent: accessory muscle use, rales, rhonchi, wheezes - Cardiovascular Cardiovascular exam: Present: RRR, +S1, +S2. Absent: diastolic murmur, gallop, rubs, systolic murmur - GI/Abdominal GI/Abdominal exam: Present: normal bowel sounds, soft, no peritoneal signs. Absent: distended, tenderness - Extremities Exam Extremities exam: Present: warm, radial pulses palpable and symetrical. Absent : calf tenderness, cyanotic Additional comments: +1 edema noted in external knees bilaterally. - Neurological Exam Neurological exam: Present: CN II-XII intact, oriented X3, no focal deficits. Absent: pronater drift, facial droop, speech deficit - Skin Skin exam: Present: dry, intact Internal Medicine: Result - Labs CBC & Chem 7: 11/24/16 01:39 11/24/16 13:30 Labs: Short CBC 11/24/16 Range/Units 01:39 WBC 9.4 (4.3-11.1) K/mcL Hgb 13.2 (11.5-15.4) g/dL Hct 36.7 (35.3-44.9) % Plt Count 260 (140-400) K/mcL Neutrophils # 6.2 (1.6-8.9) K/mcL BMP 11/23/16 11/24/16 11/24/16 21:03 01:39 05:54 Sodium 116 L* 119 L* 121 L Potassium 3.0 L 3.1 L 4.2 D Chloride 82 L 85 L 90 L Carbon Dioxide 22 23 21 BUN 13 13 12 Creatinine 0.78 0.81 0.77 Glucose 101 H 82 80 Calcium 8.7 8.7 8.4 L 11/24/16 11/24/16 09:14 13:30 Sodium 122 L 122 L Potassium 3.7 3.9 Chloride 92 L 94 L Carbon Dioxide 21 19 BUN 13 13 Creatinine 0.74 0.83 Glucose 85 115 H Calcium 8.1 L 8.3 L Liver Function 11/24/16 Range/Units 01:39 Total Bilirubin 0.9 (0.2-1.2) mg/dL AST 29 (5-34) Units/L ALT 12 (0-55) Units/L Alkaline Phosphatase 90 (38-126) Units/L Albumin 3.6 (3.5-5.0) g/dL - ABG Interpretation ABG results: PT/INR, D-dimer PT 16.3 Seconds (9.4-12.1) H 11/24/16 01:39 Consult Discharge Plan - Plan Referrals: Sascha Roberson MD [Primary Care Provider] - <FouziaRaymundoAdy - Last Filed: 11/24/16 20:38> Date of Encounter: 11/24/16 - Constitutional Vitals: Temp Pulse Resp BP Pulse Ox 97.8 F 58 24 130/60 99 11/24/16 19:46 11/24/16 19:46 11/24/16 19:46 11/24/16 19:46 11/24/16 19:46 Internal Medicine: Result - Labs CBC & Chem 7: 11/24/16 01:39 11/24/16 17:40 Labs: Short CBC 11/24/16 Range/Units 01:39 WBC 9.4 (4.3-11.1) K/mcL Hgb 13.2 (11.5-15.4) g/dL Hct 36.7 (35.3-44.9) % Plt Count 260 (140-400) K/mcL Neutrophils # 6.2 (1.6-8.9) K/mcL BMP 11/23/16 11/24/16 11/24/16 21:03 01:39 05:54 Sodium 116 L* 119 L* 121 L Potassium 3.0 L 3.1 L 4.2 D Chloride 82 L 85 L 90 L Carbon Dioxide 22 23 21 BUN 13 13 12 Creatinine 0.78 0.81 0.77 Glucose 101 H 82 80 Calcium 8.7 8.7 8.4 L 11/24/16 11/24/16 11/24/16 09:14 13:30 17:40 Sodium 122 L 122 L 124 L Potassium 3.7 3.9 3.4 L Chloride 92 L 94 L 94 L Carbon Dioxide 21 19 21 BUN 13 13 16 Creatinine 0.74 0.83 0.91 Glucose 85 115 H 126 H Calcium 8.1 L 8.3 L 8.4 L Liver Function 11/24/16 Range/Units 01:39 Total Bilirubin 0.9 (0.2-1.2) mg/dL AST 29 (5-34) Units/L ALT 12 (0-55) Units/L Alkaline Phosphatase 90 (38-126) Units/L Albumin 3.6 (3.5-5.0) g/dL - ABG Interpretation ABG results: PT/INR, D-dimer PT 16.3 Seconds (9.4-12.1) H 11/24/16 01:39 - Attending Attestation I examined this patient and my medical decision-making was reviewed with the Resident Physician, Dr Castro. I agree with the documented findings, disposition and treatment plan as described except to the extent set forth below. Patient presented to the hospital with abdominal pain. Was found to have hyponatremia with a sodium of 1:15. She was treated with normal saline. Sodium 1 up to 121. I had stopped IV fluids. Sodium went up to 122. Patient' s metastatic since back to baseline. We will institute fluid restriction liberalized diet. Check sodium in the morning.
[2016-11-24] MEDS ORDERED: Warfarin perPT PO PRN (18:00)
[2016-11-24] MEDS: *HR* Warfarin 2 MG TABLET PO SCH (18:10)
[2016-11-24 18:11] LABS: BUN/Creatinine Ratio 18 (6-26); Blood Urea Nitrogen 16 mg/dL (7-20); Calcium 8.4 mg/dL (8.6-10.8); Carbon Dioxide 21 mEq/L (19-29); Chloride 94 mEq/L (98-109); Glucose 126 mg/dL (70-99); Osmolality,Calculated 261 (280-300); Potassium 3.4 mEq/L (3.5-4.5); Sodium 124 mEq/L (136-145); eGFR For African Americans > 60 (> 60); eGFR For Non-African Americans 59 (> 60)
[2016-11-24] MEDS: *HR* Morphine 2 MG/ML SYRINGE IVP PRN (23:57)
[2016-11-25] MEDS: *HR* OxyCODONE/APAP 5/325 TABLET PO PRN ×3 (02:39→19:13)
[2016-11-25] MEDS: Clotrimazole/Betameth Dip CRM 45 APPL/45 GM TUBE TP SCH ×3 (02:40→21:21)
[2016-11-25 04:11] LABS: Basophils % 0.2 %; Eosinophils % 0.6 %; Hematocrit 33.7 % (35.3-44.9); Hemoglobin 11.9 g/dL (11.5-15.4); Immature Granulocytes % 0.8 % (0-4); Immature Platelets 3.8 % (1.1-6.1); Lymphocytes % 16.2 %; Mean Corpuscular HGB Conc 35.3 g/dL (31.6-35.5); Mean Corpuscular Hemoglobin 33.1 pg (28.0-33.3); Mean Corpuscular Volume 93.9 fL (83.0-100.0); Mean Platelet Volume 9.3 fL (9.4-12.4); Monocytes # 0.9 K/mcL (0.0-1.3); Monocytes % 13.5 %; Neutrophils # 4.3 K/mcL (1.6-8.9); Platelet Count 236 K/mcL (140-400); Red Blood Count 3.59 M/mcL (3.82-4.97); Red Cell Distribution Width 12.9 % (11.5-14.5); Segmented Neutrophils % 68.7 %
[2016-11-25 04:12] LABS: INR 1.5; Prothrombin Time 16.6 Seconds (9.4-12.1)
[2016-11-25 04:30] LABS: BUN/Creatinine Ratio 18 (6-26); Blood Urea Nitrogen 14 mg/dL (7-20); Calcium 8.8 mg/dL (8.6-10.8); Carbon Dioxide 20 mEq/L (19-29); Chloride 97 mEq/L (98-109); Chol/HDL Ratio 3.9 (0-4.9); Glucose 87 mg/dL (70-99); Osmolality,Calculated 262 (280-300); Potassium 3.3 mEq/L (3.5-4.5); Sodium 126 mEq/L (136-145); eGFR For African Americans > 60 (> 60); eGFR For Non-African Americans > 60 (> 60)
[2016-11-25] MEDS: Ondansetron 4 MG/2 ML VIAL IVP PRN (05:09)
[2016-11-25] MEDS: *HR* Morphine 2 MG/ML SYRINGE IVP PRN (05:09)
[2016-11-25] MEDS: hydrALAZINE 25 MG TABLET PO SCH ×2 (09:38→20:26)
[2016-11-25] MEDS: Celecoxib 200 MG CAPSULE PO SCH (09:39)
[2016-11-25] MEDS: Isosorbide MONOnitrate (24 HR) 30 MG TAB.ER.24H PO SCH (09:39)
[2016-11-25] MEDS: Diltiazem CD (24hr) 180 MG CAPSULE PO SCH (09:39)
[2016-11-25] MEDS: Pantoprazole 40 MG VIAL IVP SCH (09:40)
[2016-11-25] MEDS ORDERED: Nitrofurantoin (BID) 100 MG CAPSULE PO SCH (10:57)
[2016-11-25 12:27] LABS: Bilirubin,Urine Negative (Negative); Blood,Urine Moderate (Negative); Clarity,Urine Turbid (Clear); Color,Urine Yellow (Yellow); Glucose,Urine (UA) Normal (Normal); Ketones,Urine Negative (Negative); Leukocyte Esterase,Urine Large (Negative); Nitrite,Urine Negative (Negative); Protein,Urine 100 mg/dL (Neg-Trace); Specific Gravity,Urine 1.012 (1.010-1.025); Urobilinogen,Urine Normal (Normal)
[2016-11-25] MEDS: *HR* Warfarin 1 MG TABLET PO SCH (17:28)
--- NOTE | 2016-11-25 18:04 | Internal Med Progress Note ---
Addendum entered and electronically signed by Fred Castro DO 11/25/16 18: 13: Addendum to A&P. Uncomplicated cystitis -Patient has symptomatic bacturia with culture demonstrating GNR's with CFU > 100k. We will place her on ceftriaxone. Original Note: <Fred Castro - Last Filed: 11/25/16 18:02> Date of Encounter: 11/25/16 Time of Encounter: 10:00 - Assessment and plan (1) Hyponatremia Current Visit: Yes Status: Acute Assessment and plan: 11/25 The patient has improved steadily. Her sodium has risen at an appropriate rate. We will continue to monitor this and hope to discharge tomorrow. 11/24 The patient presents to the emergency room with symptomatic hyponatremia including issues with confusion and disorientation, changes in each balance, and inability to focus. At that time her serum sodium was determined to be 116 by bmp. This is her in relation to previous sodiums and previous BMPs -In the emergency room she received IV Lasix prior to transfer to the floor. -Although initially determined to be probable SIADH, the etiology of his hyponatremia appears to be more mixed picture. The patient admits to drinking excessive amounts of water due to recommendation by the ER physician when she was diagnosed with renal calculi previously. She denies polydipsia at this time. Serum osmolality was 253 and urine osmolality was 215 this morning, and a specific gravity of 1.011, suggesting that this was not appear SIADH situation. -Patient is on strict intake and output monitoring and has maintained a -960 mL fluid balance. -Cardiac monitoring in place. BMPs every 4 hours. -IV fluids have been discontinued at this time. We will enforce a fluid restricted diet at 1500 mL per day, and resume normal diet. -We will aim for Zaida of increasing sodium bicarbonate 8 every 24 hours. (2) Atrial fibrillation Current Visit: No Status: Chronic Assessment and plan: Patient has history of paroxysmal atrial fibrillation and is anticoagulated with warfarin. She currently has a subtherapeutic INR at 1.5. Warfarin is dosed by pharmacy was alerted of subtherapeutic INR and adjust dose accordingly. We will continue to monitor at this time. -Notably patient has remained in sinus rhythm throughout admission thus far. Qualifiers: Atrial fibrillation type: paroxysmal Qualified Code(s): I48.0 - Paroxysmal atrial fibrillation (3) Coronary artery disease Current Visit: No Status: Chronic Assessment and plan: Patient has known history of coronary artery disease, nonischemic cardiomyopathy , renal artery stenosis, and bilateral carotid stenosis. She is currently stable and follows with [facility] cardiology. We will continue home cardiac medications of aspirin and Plavix Qualifiers: Coronary Disease-Associated Artery/Lesion type: [place] artery [place] vs. transplanted heart: [place] heart Associated angina: without angina Qualified Code(s): I25.10 - Atherosclerotic heart disease of [place] coronary artery without angina pectoris (4) Hypertension Current Visit: Yes Status: Chronic Assessment and plan: Patient has known history of hypertension, was admitted with high blood pressure. The patient's blood pressure has decreased to normal limits in the past 24 hours. We will continue her home dose of hydralazine by mouth as well as the medications diltiazem, sotalol, and losartan. Qualifiers: Hypertension type: essential hypertension Qualified Code(s): I10 - Essential (primary) hypertension (5) History of interstitial lung disease Current Visit: No Status: Chronic Assessment and plan: Patient admits to chronic lung injury due to medication with amiodarone in the past. She states that she has a baseline shortness of breath for which she follows [facility]. -Patient baseline oxygen is 2 L nasal cannula at rest and at night. We will continue this regimen as needed. (6) Low back pain Current Visit: Yes Status: Acute Assessment and plan: Patient is experiencing low back pain in the sacral region. Based on history and physical exam appears that this may be the beginning of a pressure ulcer. Patient was given pain medication as needed, and a K pad was placed. Additionally, nurses were ordered to rotate patient regularly. -Patient was also given lidocaine patch which she says was very helpful. Qualifiers: Qualified Code(s): M54.5 - Low back pain (7) DVT prophylaxis Current Visit: Yes Status: Acute Assessment and plan: Patient is on SCDs - Subjective Interval history: 11/25 Patient was resting comfortably in bed and appeared in no acute distress at the time of examination. She states that she was having symptoms back pain which occurred her she was transferred to the floor yesterday. Acute centrally in her back and has been a 9 out of 10. She said that she is otherwise feeling much better. Additionally she also notes that she has had urinary frequency and some urinary discomfort. 7/ Patient resting comfortably in bed and appears in no acute distress at time of examination this morning. She states that when she came to the ER she was feeling very woozy, lightheaded, confused, however she says that this is largely resolved. Patient was recently treated for small kidney stones, at which time the physician advised her to drink lots of water. At this time she said that she has urinating frequently and is not excessively thirsty. She does complain of back pain associated with laying in the bed. - Constitutional Vitals: Temp Pulse Resp BP Pulse Ox 97.6 F 59 16 146/55 95 11/25/16 11:45 11/25/16 11:45 11/25/16 11:45 11/25/16 11:45 11/25/16 11:45 - Head Head exam: Present: atraumatic, normocephalic - Eye Eye exam: Present: PERRL, conjuntiva pink, sclera anicteric Pupils: Present: PERRL - Neck Neck exam general surgery: Present: supple, trachea midline. Absent: lymphadenopathy - Respiratory Respiratory exam: Present: CTAB. Absent: accessory muscle use, rales, rhonchi, wheezes - Cardiovascular Cardiovascular exam: Present: RRR, +S1, +S2. Absent: diastolic murmur, gallop, rubs, systolic murmur - GI/Abdominal GI/Abdominal exam: Present: normal bowel sounds, soft, no peritoneal signs. Absent: distended, tenderness - Extremities Exam Extremities exam: Present: warm, radial pulses palpable and symetrical. Absent : calf tenderness, cyanotic, pedal edema - Back Exam Additional comments: Small area of ecchymosis noted over the right sacral sulcus/SI joint. Patient experienced tenderness to palpation around the area. No damage to skin is seen at this time. - Neurological Exam Neurological exam: Present: CN II-XII intact, oriented X3, no focal deficits. Absent: pronater drift, facial droop, speech deficit - Skin Skin exam: Present: dry, intact Internal Medicine: Result - Labs CBC & Chem 7: 11/25/16 03:37 11/25/16 03:37 Labs: Short CBC 11/25/16 Range/Units 03:37 WBC 6.3 (4.3-11.1) K/mcL Hgb 11.9 (11.5-15.4) g/dL Hct 33.7 L (35.3-44.9) % Plt Count 236 (140-400) K/mcL Neutrophils # 4.3 (1.6-8.9) K/mcL BMP 11/24/16 11/25/16 17:40 03:37 Sodium 124 L 126 L Potassium 3.4 L 3.3 L Chloride 94 L 97 L Carbon Dioxide 21 20 BUN 16 14 Creatinine 0.91 0.78 Glucose 126 H 87 Calcium 8.4 L 8.8 Urine 11/25/16 Range/Units 11:48 Urine Color Yellow (Yellow) Urine Clarity Turbid A (Clear) Urine pH 6.0 (5.0-8.0) pH Units Ur Specific [place] 1.012 (1.010-1.025) Urine Protein 100 H (Neg-Trace) mg/dL Urine Glucose (UA) Normal (Normal) mg/dL - ABG Interpretation ABG results: PT/INR, D-dimer PT 16.6 Seconds (9.4-12.1) H 11/25/16 03:37 - VTE Documentation of Mechanical Device: Intermittent pneumatic compression device Consult Discharge Plan - Plan Referrals: Sascha Roberson MD [Primary Care Provider] - 12/01/16 11:30 am <Ady Fragoso - Last Filed: 11/25/16 20:26> Date of Encounter: 11/25/16 - Constitutional Vitals: Temp Pulse Resp BP Pulse Ox 97.6 F 59 16 146/55 95 11/25/16 11:45 11/25/16 11:45 11/25/16 11:45 11/25/16 11:45 11/25/16 11:45 Internal Medicine: Result - Labs CBC & Chem 7: 11/25/16 03:37 11/25/16 03:37 Labs: Short CBC 11/25/16 Range/Units 03:37 WBC 6.3 (4.3-11.1) K/mcL Hgb 11.9 (11.5-15.4) g/dL Hct 33.7 L (35.3-44.9) % Plt Count 236 (140-400) K/mcL Neutrophils # 4.3 (1.6-8.9) K/mcL BMP 11/25/16 03:37 Sodium 126 L Potassium 3.3 L Chloride 97 L Carbon Dioxide 20 BUN 14 Creatinine 0.78 Glucose 87 Calcium 8.8 Urine 11/25/16 Range/Units 11:48 Urine Color Yellow (Yellow) Urine Clarity Turbid A (Clear) Urine pH 6.0 (5.0-8.0) pH Units Ur Specific [place] 1.012 (1.010-1.025) Urine Protein 100 H (Neg-Trace) mg/dL Urine Glucose (UA) Normal (Normal) mg/dL - ABG Interpretation ABG results: PT/INR, D-dimer PT 16.6 Seconds (9.4-12.1) H 11/25/16 03:37 - Attending Attestation I examined this patient and my medical decision-making was reviewed with the Resident Physician, Dr Castro. I agree with the documented findings, disposition and treatment plan as described except to the extent set forth below. patient reports sacral pain. That developed over the last 1 day. Denies hematuria and dysuria. Plan: Will start Rocephin for UTI. Continue with fluid restriction. Liberalize diet. PT OT evaluation.
[2016-11-25] MEDS: Melatonin 3 MG TABLET PO SCH (20:26)
[2016-11-26] MEDS: *HR* OxyCODONE/APAP 5/325 TABLET PO PRN ×3 (01:48→17:20)
[2016-11-26 02:04] LABS: Bilirubin,Urine Small (Negative); Blood,Urine Negative (Negative); Clarity,Urine Turbid (Clear); Color,Urine Yellow (Yellow); Glucose,Urine (UA) Normal (Normal); Ketones,Urine Trace mg/dL (Negative); Leukocyte Esterase,Urine Large (Negative); Nitrite,Urine Negative (Negative); PH,Urine 5.5 pH Units (5.0-8.0); Protein,Urine Trace mg/dL (Neg-Trace); Specific Gravity,Urine 1.023 (1.010-1.025); Urobilinogen,Urine Normal (Normal)
[2016-11-26 04:00] LABS: Basophils % 0.3 %; Eosinophils # 0.1 K/mcL (0.0-0.6); Eosinophils % 1.2 %; Hematocrit 33.3 % (35.3-44.9); Hemoglobin 11.3 g/dL (11.5-15.4); Immature Granulocytes % 0.7 % (0-4); Lymphocytes % 17.5 %; Mean Corpuscular HGB Conc 33.9 g/dL (31.6-35.5); Mean Corpuscular Hemoglobin 33.2 pg (28.0-33.3); Mean Corpuscular Volume 97.9 fL (83.0-100.0); Mean Platelet Volume 9.7 fL (9.4-12.4); Monocytes % 17.3 %; Neutrophils # 3.6 K/mcL (1.6-8.9); Platelet Count 199 K/mcL (140-400); Red Cell Distribution Width 13.5 % (11.5-14.5)
[2016-11-26 04:04] LABS: INR 1.7; Prothrombin Time 18.8 Seconds (9.4-12.1)
[2016-11-26 04:19] LABS: Calcium 8.6 mg/dL (8.6-10.8); Potassium 4.1 mEq/L (3.5-4.5)
[2016-11-26] MEDS ORDERED: 0.9 % Sodium Chloride 250 ML IVC ONE (06:28)
[2016-11-26] MEDS: Isosorbide MONOnitrate (24 HR) 30 MG TAB.ER.24H PO SCH (08:41)
[2016-11-26] MEDS: Pantoprazole 40 MG VIAL IVP SCH (08:41)
[2016-11-26] MEDS: Clotrimazole/Betameth Dip CRM 45 APPL/45 GM TUBE TP SCH ×2 (08:42→21:03)
[2016-11-26] MEDS: Diltiazem CD (24hr) 180 MG CAPSULE PO SCH (08:42)
[2016-11-26] MEDS: hydrALAZINE 25 MG TABLET PO SCH ×2 (08:42→21:02)
[2016-11-26 12:14] LABS: Potassium 4.4 mEq/L (3.5-4.5)
[2016-11-26] MEDS ORDERED: 0.9 % Sodium Chloride 1,000 ML IVC SCH ×2 (13:00→14:15)
--- NOTE | 2016-11-26 13:20 | Internal Med Progress Note ---
<Allan Best - Last Filed: 11/26/16 13:17> Date of Encounter: 11/26/16 Time of Encounter: 13:17 - Assessment and plan (1) Hyponatremia Current Visit: Yes Status: Acute Assessment and plan: 11/26/16 patient continues to improve. SNa 130 today. 11/25 The patient has improved steadily. Her sodium has risen at an appropriate rate. We will continue to monitor this and hope to discharge tomorrow. 11/24 The patient presents to the emergency room with symptomatic hyponatremia including issues with confusion and disorientation, changes in each balance, and inability to focus. At that time her serum sodium was determined to be 116 by bmp. This is her in relation to previous sodiums and previous BMPs -In the emergency room she received IV Lasix prior to transfer to the floor. -Although initially determined to be probable SIADH, the etiology of his hyponatremia appears to be more mixed picture. The patient admits to drinking excessive amounts of water due to recommendation by the ER physician when she was diagnosed with renal calculi previously. She denies polydipsia at this time. Serum osmolality was 253 and urine osmolality was 215 this morning, and a specific gravity of 1.011, suggesting that this was not appear SIADH situation. -Patient is on strict intake and output monitoring and has maintained a -960 mL fluid balance. -Cardiac monitoring in place. BMPs every 4 hours. -IV fluids have been discontinued at this time. We will enforce a fluid restricted diet at 1500 mL per day, and resume normal diet. -We will aim for Zaida of increasing sodium bicarbonate 8 every 24 hours. (2) Atrial fibrillation Current Visit: No Status: Chronic Assessment and plan: Patient has history of paroxysmal atrial fibrillation and is anticoagulated with warfarin. She currently has a subtherapeutic INR at 1.7. Which is trending up. Warfarin is dosed by pharmacy was alerted of subtherapeutic INR and adjust dose accordingly. We will continue to monitor at this time. -Notably patient has remained in sinus rhythm throughout admission thus far. Qualifiers: Atrial fibrillation type: paroxysmal Qualified Code(s): I48.0 - Paroxysmal atrial fibrillation (3) ELIZ (acute kidney injury) Current Visit: Yes Status: Acute Assessment and plan: likely a result of NSAID, ARB, and fluid restriction. DC NSAID. IV fluids. Repeat BMP in the AM. Monitor I's and O's (4) Coronary artery disease Current Visit: No Status: Chronic Assessment and plan: Patient has known history of coronary artery disease, nonischemic cardiomyopathy , renal artery stenosis, and bilateral carotid stenosis. She is currently stable and follows with [facility]. We will continue home cardiac medications of aspirin and Plavix Qualifiers: Coronary Disease-Associated Artery/Lesion type: [place] artery [place] vs. transplanted heart: [place] heart Associated angina: without angina Qualified Code(s): I25.10 - Atherosclerotic heart disease of [place] coronary artery without angina pectoris (5) Low back pain Current Visit: Yes Status: Acute Assessment and plan: Marked improvement. patients symptoms are improving. . 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 /Currently on Home dose of O2. Avoid AMioderone in the future. (7) Chronic hypoxemic respiratory failure Current Visit: Yes Status: Acute Assessment and plan: secondary to amioderone. at baseline. (8) DVT prophylaxis Current Visit: Yes Status: Acute Assessment and plan: Patient is on SCDs - Subjective Interval history: No major events overnight. Patient states she is feeling much better. The pain in her back is lessened and is tolerable. She states that she no longer feels weak. She denies any chest pain or discomfort. Denies any difficulty in breathing this morning. She has no further complaints or concerns at this time. - Constitutional Vitals: Temp Pulse Resp BP Pulse Ox 97.9 F 60 14 116/64 98 11/26/16 12:00 11/26/16 12:00 11/26/16 12:00 11/26/16 12:11/26/16 12:00 Exam: Gen.: This is a very pleasant well-developed well-nourished 81-year-old female who is alert and orientated to person place time and situation. She sitting in the bedside chair and appears to be comfortable in no acute distress this time. Head: Metastatic cephalic atraumatic. EENT: Anicteric sclera, pupils equally round. Normal external appearance of ears nose and eyes. She is wearing a nasal cannula with oxygen. Dentition intact. Moist mucous membranes. Neck supple without masses or thyromegaly. There is no cervical submandibular supraclavicular lymphadenopathy palpable on exam. The trachea is midline. Heart: Heart has a regular rate and rhythm without murmurs rubs or gallops. No JVD. Normal capillary refill. Lungs: She has normal effort of breathing. Clear to auscultation bilaterally. Globally diminished. Most likely this is her baseline. Abdomen: The abdomen is obese, soft, nondistended, nontender to palpation. Musculoskeletal: Grossly normal for age no gross deformity noted. Extremities: There is no clubbing, cyanosis or edema. Integument: No rashes or lesions. Internal Medicine: Result - Labs CBC & Chem 7: 11/26/16 03:34 11/26/16 11:29 Labs: Short CBC 11/26/16 Range/Units 03:34 WBC 5.7 (4.3-11.1) K/mcL Hgb 11.3 L (11.5-15.4) g/dL Hct 33.3 L (35.3-44.9) % Plt Count 199 (140-400) K/mcL Neutrophils # 3.6 (1.6-8.9) K/mcL BMP 11/26/16 11/26/16 03:34 11:29 Sodium 130 L 130 L Potassium 4.1 4.4 Chloride 101 101 Carbon Dioxide 22 22 BUN 26 H D 27 H Creatinine 1.47 H D 1.39 H Glucose 120 H 99 Calcium 8.6 9.0 Urine 11/26/16 Range/Units 01:55 Urine Color Yellow (Yellow) Urine Clarity Turbid A (Clear) Urine pH 5.5 (5.0-8.0) pH Units Ur Specific [place] 1.023 (1.010-1.025) Urine Protein Trace (Neg-Trace) mg/dL Urine Glucose (UA) Normal (Normal) mg/dL - ABG Interpretation ABG results: PT/INR, D-dimer PT 18.8 Seconds (9.4-12.1) H 11/26/16 03:34 - VTE Documentation of Mechanical Device: Intermittent pneumatic compression device Consult Discharge Plan - Plan Referrals: Sascha Roberson MD [Primary Care Provider] - 12/01/16 11:30 am <Ady Fragoso - Last Filed: 07/08/17 18:56> Date of Encounter: 11/26/16 - Constitutional Vitals: Temp Pulse Resp BP Pulse Ox 97.8 F 59 14 123/50 98 11/26/16 15:24 11/26/16 15:24 11/26/16 15:24 11/26/16 15:24 11/26/16 15:24 Internal Medicine: Result - Labs CBC & Chem 7: 11/26/16 03:34 11/26/16 11:29 Labs: Short CBC 11/26/16 Range/Units 03:34 WBC 5.7 (4.3-11.1) K/mcL Hgb 11.3 L (11.5-15.4) g/dL Hct 33.3 L (35.3-44.9) % Plt Count 199 (140-400) K/mcL Neutrophils # 3.6 (1.6-8.9) K/mcL BMP 11/26/16 11/26/16 03:34 11:29 Sodium 130 L 130 L Potassium 4.1 4.4 Chloride 101 101 Carbon Dioxide 22 22 BUN 26 H D 27 H Creatinine 1.47 H D 1.39 H Glucose 120 H 99 Calcium 8.6 9.0 Urine 11/26/16 Range/Units 01:55 Urine Color Yellow (Yellow) Urine Clarity Turbid A (Clear) Urine pH 5.5 (5.0-8.0) pH Units Ur Specific [place] 1.023 (1.010-1.025) Urine Protein Trace (Neg-Trace) mg/dL Urine Glucose (UA) Normal (Normal) mg/dL - ABG Interpretation ABG results: PT/INR, D-dimer PT 18.8 Seconds (9.4-12.1) H 11/26/16 03:34 - Attending Attestation I examined this patient and my medical decision-making was reviewed with the Resident Physician, Dr. Best. I agree with the documented findings, disposition and treatment plan as described. Patient's creatinine is worsening today. Her creatinine doubled from yesterday consistent with new acute renal failure which is a new problem for today. we will treat her with IV fluids. Stop Celebrex. StopACE inhibitor.
[2016-11-26] MEDS: *HR* Warfarin 2 MG TABLET PO SCH (17:20)
[2016-11-26] MEDS: Melatonin 3 MG TABLET PO SCH (21:02)
[2016-11-26] MEDS: *HR* Morphine 2 MG/ML SYRINGE IVP PRN (22:30)
[2016-11-27] MEDS: *HR* OxyCODONE/APAP 5/325 TABLET PO PRN ×2 (00:34→22:17)
[2016-11-27 01:30] LABS: INR 2.1; Prothrombin Time 22.6 Seconds (9.4-12.1)
[2016-11-27 01:37] LABS: BUN/Creatinine Ratio 25 (6-26); Blood Urea Nitrogen 26 mg/dL (7-20); Calcium 8.3 mg/dL (8.6-10.8); Carbon Dioxide 18 mEq/L (19-29); Chloride 107 mEq/L (98-109); Glucose 119 mg/dL (70-99); Osmolality,Calculated 276 (280-300); Potassium 4.8 mEq/L (3.5-4.5); Sodium 130 mEq/L (136-145); eGFR For African Americans > 60 (> 60); eGFR For Non-African Americans 51 (> 60)
[2016-11-27] MEDS: Ondansetron 4 MG/2 ML VIAL IVP PRN (04:09)
[2016-11-27] MEDS: *HR* Morphine 2 MG/ML SYRINGE IVP PRN (04:29)
[2016-11-27] MEDS: Isosorbide MONOnitrate (24 HR) 30 MG TAB.ER.24H PO SCH (09:16)
[2016-11-27] MEDS: hydrALAZINE 25 MG TABLET PO SCH ×2 (09:16→22:17)
[2016-11-27] MEDS: Diltiazem CD (24hr) 180 MG CAPSULE PO SCH (09:16)
[2016-11-27] MEDS: Pantoprazole 40 MG VIAL IVP SCH (09:17)
[2016-11-27] MEDS: Clotrimazole/Betameth Dip CRM 45 APPL/45 GM TUBE TP SCH ×2 (09:18→22:18)
[2016-11-27] MEDS ORDERED: MOM Conc 10 ML UD.LIQ PO ONE (10:32)
--- NOTE | 2016-11-27 17:05 | Discharge Summary ---
<Allan Best - Last Filed: 11/27/16 17:13> Date of Encounter: 11/27/16 Time of Encounter: 17:01 - Discharge Diagnosis (1) Hyponatremia Priority: Primary Status: Acute (2) Atrial fibrillation Priority: Secondary Status: Chronic Qualifiers: Atrial fibrillation type: paroxysmal Qualified Code(s): I48.0 - Paroxysmal atrial fibrillation (3) ELIZ (acute kidney injury) Priority: Secondary Status: Acute (4) Coronary artery disease Priority: Secondary Status: Chronic Qualifiers: Coronary Disease-Associated Artery/Lesion type: [place] artery [place] vs. transplanted heart: [place] heart Associated angina: without angina Qualified Code(s): I25.10 - Atherosclerotic heart disease of [place] coronary artery without angina pectoris (5) Low back pain Priority: Secondary Status: Acute (6) Amiodarone pulmonary toxicity Priority: Secondary Status: Acute (7) Chronic hypoxemic respiratory failure Priority: Secondary Status: Acute (8) DVT prophylaxis Priority: Secondary Status: Acute - Discharge Medications Prescriptions: Lidocaine Patch [Lidoderm 5% patch] 1 each TP DAILY 30 Days Sennosides/Docusate Sodium [Senna Plus] 1 each PO BID 30 Days Home Medications: Clopidogrel [Plavix] 75 mg PO DAILY 02/17/15 [History] HydrALAZINE 25 mg PO BID 02/17/15 [History] Isosorbide MONOnitrate (24 HR) [Imdur] 90 mg PO DAILY 02/17/15 [History] Losartan [Cozaar] 100 mg PO DAILY 02/17/15 [History] Omeprazole [PriLOSEC] 20 mg PO BID 02/17/15 [History] Pravastatin Sodium [Pravachol] 20 mg PO DAILY 02/17/15 [History] Oxygen 2 l .ROUTE PRN PRN 30 Days 03/04/15 [Rx] Sotalol [Betapace] 80 mg PO Q12HR #60 tablet 03/04/15 [Rx] Clotrimazole/Betamethasone Dip [Lotrisone Cream] 15 gm TP BID #1 cream..g. 11/21 [Rx] [place]-3 Fatty Acids [Fish Oil] 600 mg PO DAILY 11/21/16 [History] Promethazine [Phenergan] 12.5 mg PO Q6HR PRN #12 tablet 11/21/16 [Rx] Diltiazem HCl [Diltiazem 24Hr Cd] 180 mg PO DAILY 11/23/16 [History] Warfarin [Coumadin] 1 mg PO SUMOTUWEFRSA 11/23/16 [History] Warfarin [Coumadin] 2 mg PO TH 11/23/16 [History] HYDROcodone/Acet 5/325 mg [[place] 5-325 mg] 1 tab PO Q6H PRN #20 tab 11/27/16 [Rx ] Lidocaine Patch [Lidoderm 5% patch] 1 each TP DAILY 30 Days 11/27/16 [Rx] Sennosides/Docusate Sodium [Senna Plus] 1 each PO BID 30 Days 11/27/16 [Rx] Allergies/Adverse Reactions: Allergies codeine Allergy (Verified 11/21/16 11:27) Rash morphine Allergy (Verified 11/21/16 11:27) Rash Penicillins Allergy (Verified 11/21/16 11:27) Rash meperidine [From Demerol] Adverse Reaction (Verified 11/21/16 11:27) Hallucinating Date of admission: 11/23/16 20:39 Primary care physician: Sascha Roberson MD Consults: 11/25/16 10:08 Consult to Occupational Therapy [CONS] Routine Comment: Evaluate, develop and implement POC Reason for Consult: weakness Consult to Physical Therapy [CONS] Routine Comment: Evaluate, develop and implement POC Reason for Consult: weakness 11/26/16 05:25 Consult to Director Of Planning [CONS] Routine Reason for SW Consult: patients daughter concerned about her needs upon discharge. patient now is at [facility]. Discharging clinician: Allan Best Anticipated date of discharge: 11/27/16 - Patient Status Disposition: Transfer SNF Condition: Good Functional capacity at discharge: uses cane/walker Overall status at discharge: patient is progressing back to baseline - Ambulatory Orders Ambulatory Orders: Basic Metabolic Panel [CHEM] Time Frame: 1 Week, Location: any lab - Discharge Instructions Follow Up With: Sascha Roberson MD [Primary Care Provider] - 12/01/16 11:30 am Additional Instructions: Follow up with your PCP in 1 week. You will need to have your sodium rechecked in one week. Take medications only as prescribed. - Diet and Activity Activity: as per physical therapy Diet: other (liberalize salt. Fluid restriction 2L per day. ) Hospital course: Ms. Castro is a 81 year old female was admitted to [facility] for Severe Hyponatremia. Most likley the etiology was multifactorial. She was drinking excessive amounts of water as she had recently passed a kidney stone and that this could prevent reoccurance. Additionally She was on a low sodium diet and on lasix. She was treated with fluid restriction and her SNa has tom from 116 to 130. She did have some mild ELIZ during her hospitalization which was likely due to fluid restriction NSAID adn ARB. This improved with IV fluids. Today her vitals are WNL, she has no major lab abnormalities. No dificulty voiding her bladder. Dose have some mild constipaiton which is being treated, and she is ambulating with her walker. WE will discharge her to an f for inpatient rehab. We will have her follow with her PCP in a week. We are hokding lasix at this time and have her on a fluid restriction. She will need to follow up with PCP to see if she still needs the same dose of Lasix after her hyponatremia has fully resolved. She is agreeable to the above plan. - Time Spent with Patient Total time spent providing and/or coordinating discharge services: Greater than 30 minutes - Constitutional Vitals: Temp Pulse Resp BP Pulse Ox 97.5 F L 67 18 164/62 93 11/27/16 15:39 11/27/16 15:39 11/27/16 15:39 11/27/16 15:39 11/27/16 15:39 General appearance: Present: A&O X 3, pleasant - Head Head exam: Present: atraumatic, normocephalic - Eye Eye exam: Present: PERRL, conjuntiva pink, sclera anicteric Pupils: Present: PERRL - Neck Neck exam general surgery: Present: supple, trachea midline. Absent: lymphadenopathy - Respiratory Respiratory exam: Absent: accessory muscle use, rales, rhonchi, wheezes Additional comments: mild dry crackles at this bases. - Cardiovascular Cardiovascular exam: Present: RRR, +S1, +S2. Absent: diastolic murmur, gallop, rubs, systolic murmur - GI/Abdominal GI/Abdominal exam: Present: normal bowel sounds, soft, no peritoneal signs. Absent: distended, tenderness - Extremities Exam Extremities exam: Present: warm, radial pulses palpable and symetrical. Absent : calf tenderness, cyanotic, pedal edema - Skin Skin exam: Present: dry, intact - VTE Documentation of Mechanical Device: Intermittent pneumatic compression device <Ady Fragoso - Last Filed: 11/27/16 19:36> Date of Encounter: 11/27/16 Date of admission: 11/23/16 20:39 Primary care physician: Sascah Roberson MD Consults: 11/25/16 10:08 Consult to Occupational Therapy [CONS] Routine Comment: Evaluate, develop and implement POC Reason for Consult: weakness Consult to Physical Therapy [CONS] Routine Comment: Evaluate, develop and implement POC Reason for Consult: weakness 11/26/16 05:25 Consult to Director Of Planning [CONS] Routine Reason for SW Consult: patients daughter concerned about her needs upon discharge. patient now is at [facility]. - Patient Status Functional capacity at discharge: uses cane/walker Overall status at discharge: patient is progressing back to baseline - Diet and Activity Activity: as per physical therapy Diet: other Hospital course: Ms. Castro is a 81 year old female - Time Spent with Patient Total time spent providing and/or coordinating discharge services: - Constitutional Vitals: Temp Pulse Resp BP Pulse Ox 97.5 F L 71 18 164/62 93 11/27/16 15:39 11/27/16 17:55 11/27/16 15:39 11/27/16 15:39 11/27/16 15:39 - Attending Attestation I examined this patient and my medical decision-making was reviewed with the Resident Physician, Dr. Best. I agree with the documented findings, disposition and treatment plan as described except to the extent set forth below. tthe patient's hyponatremia has improved. Creatinine improving. INR is therapeutic. We will continue treatment for UTI AND PLAN FOR DISCHARGE TOMORROW TO [facility] Subacute rehabilitation.
--- NOTE | 2016-11-27 17:17 | Physician Discharge Referral ---
<Allan Best - Last Filed: 11/27/16 17:17> ExtendedCare Referral Info Transfer To: ECF/ Rehab Provider in Charge after Transfer: PCP Institutional Level of Care: Skilled - Diagnosis (1) Hyponatremia Status: Acute (2) Atrial fibrillation Status: Chronic (3) ELIZ (acute kidney injury) Status: Acute (4) Coronary artery disease Status: Chronic (5) Low back pain Status: Acute (6) Amiodarone pulmonary toxicity Status: Acute (7) Chronic hypoxemic respiratory failure Status: Acute (8) DVT prophylaxis Status: Acute - Transfer Medications Prescriptions: Lidocaine Patch [Lidoderm 5% patch] 1 each TP DAILY 30 Days Sennosides/Docusate Sodium [Senna Plus] 1 each PO BID 30 Days Home Medications: Clopidogrel [Plavix] 75 mg PO DAILY 02/17/15 [History] HydrALAZINE 25 mg PO BID 02/17/15 [History] Isosorbide MONOnitrate (24 HR) [Imdur] 90 mg PO DAILY 02/17/15 [History] Losartan [Cozaar] 100 mg PO DAILY 02/17/15 [History] Omeprazole [PriLOSEC] 20 mg PO BID 02/17/15 [History] Pravastatin Sodium [Pravachol] 20 mg PO DAILY 02/17/15 [History] Oxygen 2 l .ROUTE PRN PRN 30 Days 03/04/15 [Rx] Sotalol [Betapace] 80 mg PO Q12HR #60 tablet 03/04/15 [Rx] Clotrimazole/Betamethasone Dip [Lotrisone Cream] 15 gm TP BID #1 cream..g. 11/21 [Rx] [place]-3 Fatty Acids [Fish Oil] 600 mg PO DAILY 11/21/16 [History] Promethazine [Phenergan] 12.5 mg PO Q6HR PRN #12 tablet 11/21/16 [Rx] Diltiazem HCl [Diltiazem 24Hr Cd] 180 mg PO DAILY 11/23/16 [History] Warfarin [Coumadin] 1 mg PO SUMOTUWEFRSA 11/23/16 [History] Warfarin [Coumadin] 2 mg PO TH 11/23/16 [History] HYDROcodone/Acet 5/325 mg [[place] 5-325 mg] 1 tab PO Q6H PRN #20 tab 07/09/17 [Rx ] Lidocaine Patch [Lidoderm 5% patch] 1 each TP DAILY 30 Days 11/27/16 [Rx] Sennosides/Docusate Sodium [Senna Plus] 1 each PO BID 30 Days 11/27/16 [Rx] Allergies/Adverse Reactions: Allergies codeine Allergy (Verified 11/21/16 11:27) Rash morphine Allergy (Verified 11/21/16 11:27) Rash Penicillins Allergy (Verified 11/21/16 11:27) Rash meperidine [From Demerol] Adverse Reaction (Verified 11/21/16 11:27) Hallucinating - Respiratory Orders Oxygen / L per min (3L) Smoking Cessation: Smoking cessation has been advised. For more information, call the [place] Tobacco Quit Line at 2-124-SFNANOW. - Lab Orders Lab Orders: Other (include drug levels w/frequency) (BMP to be drawn on . Follow up on Na. Forward results to Sascha Roberson MD.) - Advance Directives Living Will: No Power of Coding Auditor: No Code Status: Full Code - Mobility Orders Other (Per PT) - Rehabiliation Orders Rehab Potential: Good Rehab Orders: Evaluation for Physical Therapy, Evaluation for Occupational Therapy CERTIFICATION: I certify that the transfer of the above named patient to an Extended Care Facility is necessary for the continuing treatment of the diagnosis listed. The above information is true and accurate reflection of patient's current condition. Confidential - Redisclosure prohibited without a patient's written consent. <Ady Fragoso - Last Filed: 11/27/16 19:37> ExtendedCare Referral Info Provider in Charge after Transfer: PCP Institutional Level of Care: Skilled - Respiratory Orders Smoking Cessation: Smoking cessation has been advised. For more information, call the [place] Tobacco Quit Line at 3-140-HINT-NOW. CERTIFICATION: I certify that the transfer of the above named patient to an Extended Care Facility is necessary for the continuing treatment of the diagnosis listed. The above information is true and accurate reflection of patient's current condition. Confidential - Redisclosure prohibited without a patient's written consent. I examined this patient and my medical decision-making was reviewed with the Resident Physician, Dr. Best. I agree with the documented findings, disposition and treatment plan as described.
[2016-11-27] MEDS: *HR* Warfarin 1 MG TABLET PO SCH (18:05)
--- NOTE | 2016-11-27 19:48 | Event Note ---
<Allan Best - Last Filed: 11/27/16 19:48> Date of Encounter: 11/27/16 Time of Encounter: 19:46 Informed by licensed staff [facility] that patient has developed rash where she has been having back/ buttockl pain. I examined the patient she has an erythjematous and vesicular rash in a sacral dermatomal distribution on the right buttuck and lower back. IT dose not cross the mid line. This is classic findings for shingles. I will order her Valacyclovir. Continue percocet for pain control. <Ady Fragoso - Last Filed: 11/27/16 19:53> Date of Encounter: 11/27/16 I examined this patient and my medical decision-making was reviewed with the Resident Physician, Dr. Best. I agree with the documented findings, disposition and treatment plan as described.
[2016-11-27] MEDS: Sennosides/Docusate Sodium TABLET PO SCH (22:17)
[2016-11-27] MEDS: valACYclovir 500 MG TABLET PO SCH (22:17)
[2016-11-27] MEDS: Melatonin 3 MG TABLET PO SCH (22:17)
[2016-11-28] MEDS: *HR* Morphine 2 MG/ML SYRINGE IVP PRN (00:42)
[2016-11-28 08:12] LABS: Hematocrit 31.5 % (35.3-44.9); Hemoglobin 10.5 g/dL (11.5-15.4); Mean Corpuscular HGB Conc 33.3 g/dL (31.6-35.5); Mean Corpuscular Volume 99.1 fL (83.0-100.0); Red Blood Count 3.18 M/mcL (3.82-4.97); Red Cell Distribution Width 13.6 % (11.5-14.5)
[2016-11-28 08:18] LABS: Prothrombin Time 22.5 Seconds (9.4-12.1)
[2016-11-28 08:26] LABS: BUN/Creatinine Ratio 21 (6-26); Calcium 8.6 mg/dL (8.6-10.8); Carbon Dioxide 19 mEq/L (19-29); Chloride 103 mEq/L (98-109); Glucose 94 mg/dL (70-99); Osmolality,Calculated 269 (280-300); Potassium 4.7 mEq/L (3.5-4.5); Sodium 129 mEq/L (136-145); eGFR For African Americans > 60 (> 60); eGFR For Non-African Americans > 60 (> 60)
[2016-11-28 08:28] LABS: Blood Urea Nitrogen 15 mg/dL (7-20)
[2016-11-28] MEDS: Isosorbide MONOnitrate (24 HR) 30 MG TAB.ER.24H PO SCH (09:23)
[2016-11-28] MEDS: Sennosides/Docusate Sodium TABLET PO SCH (09:23)
[2016-11-28] MEDS: Pantoprazole 40 MG VIAL IVP SCH (09:23)
[2016-11-28] MEDS: *HR* OxyCODONE/APAP 5/325 TABLET PO PRN (09:23)
[2016-11-28] MEDS: valACYclovir 500 MG TABLET PO SCH (09:24)
[2016-11-28] MEDS: Diltiazem CD (24hr) 180 MG CAPSULE PO SCH (09:24)
[2016-11-28] MEDS: hydrALAZINE 25 MG TABLET PO SCH (09:24)
[2016-11-28] MEDS: Clotrimazole/Betameth Dip CRM 45 APPL/45 GM TUBE TP SCH (09:25)
[2016-11-28 11:40] VITALS: BP 155/51
--- NOTE | 2016-11-28 13:12 | Internal Med Progress Note ---
<Fred Castro - Last Filed: 11/28/16 13:21> Date of Encounter: 11/28/16 Time of Encounter: 09:00 - Assessment and plan (1) Hyponatremia Status: Acute Assessment and plan: Patient has sodium of 130 and potassium of 4.8. She has returned to baseline clinically. Patient will be monited at her rehab facility. Plan: Fluid restriction diet to 1500ml [place] salt diet. (2) Atrial fibrillation Status: Chronic Assessment and plan: INR is now 2.0. Patient should continue regimen of warfarin at this time, and follow-up with warfarin clinic. Qualifiers: Atrial fibrillation type: paroxysmal Qualified Code(s): I48.0 - Paroxysmal atrial fibrillation (3) Coronary artery disease Status: Chronic Assessment and plan: Patient has known history of coronary artery disease, nonischemic cardiomyopathy , renal artery stenosis, and bilateral carotid stenosis. She is currently stable and follows with [facility] cardiology. We will continue home cardiac medications of aspirin and Plavix Qualifiers: Coronary Disease-Associated Artery/Lesion type: [place] artery [place] vs. transplanted heart: [place] heart Associated angina: without angina Qualified Code(s): I25.10 - Atherosclerotic heart disease of [place] coronary artery without angina pectoris (4) Hypertension Status: Chronic Assessment and plan: Patient has known history of hypertension, was admitted with high blood pressure. The patient's blood pressure has decreased to normal limits in the past 24 hours. We will continue her home dose of hydralazine by mouth as well as the medications diltiazem, sotalol, and losartan. Qualifiers: Hypertension type: essential hypertension Qualified Code(s): I10 - Essential (primary) hypertension (5) History of interstitial lung disease Status: Chronic Assessment and plan: Patient admits to chronic lung injury due to medication with amiodarone in the past. She states that she has a baseline shortness of breath for which she follows [facility]. -Patient baseline oxygen is 2 L nasal cannula at rest and at night. We will continue this regimen as needed. (6) Low back pain Status: Acute Assessment and plan: Marked improvement. patients symptoms are improving. Qualifiers: Qualified Code(s): M54.5 - Low back pain (7) Shingles outbreak Status: Acute Assessment and plan: Patient has classic clinical manifestation of shingles. She will continue valacyclovir and gabapentin for pain. Qualifiers: Qualified Code(s): B02.9 - Zoster without complications (8) DVT prophylaxis Status: Acute Assessment and plan: Patient is on SCDs - Subjective Interval history: Patient was resting in bed at the time of examination. She is experiencing pain related to her newly present shingles. She otherwise had no acute complaints and was in no acute distress. - Constitutional Vitals: Temp Pulse Resp BP Pulse Ox 98.7 F 67 16 155/51 94 11/28/16 11:36 11/28/16 12:44 11/28/16 12:44 11/28/16 12:44 11/28/16 12:44 General appearance: Present: A&O X 3, pleasant - Head Head exam: Present: atraumatic, normocephalic - Eye Eye exam: Present: PERRL, conjuntiva pink, sclera anicteric Pupils: Present: PERRL - Neck Neck exam general surgery: Present: supple, trachea midline. Absent: lymphadenopathy - Respiratory Respiratory exam: Present: CTAB. Absent: accessory muscle use, rales, rhonchi, wheezes - Cardiovascular Cardiovascular exam: Present: RRR, +S1, +S2. Absent: diastolic murmur, gallop, rubs, systolic murmur - GI/Abdominal GI/Abdominal exam: Present: normal bowel sounds, soft, no peritoneal signs. Absent: distended, tenderness - Extremities Exam Extremities exam: Present: warm, radial pulses palpable and symetrical. Absent : calf tenderness, cyanotic, pedal edema - Neurological Exam Neurological exam: Present: CN II-XII intact, oriented X3, no focal deficits. Absent: pronater drift, facial droop, speech deficit - Skin Skin exam: Present: dry, intact, rash, vesicles Additional comments: Vesicular rash apparent on the anterolateral surface of the right thigh in a dermatomal distribution consistent with shingles. Internal Medicine: Result - Labs CBC & Chem 7: 11/28/16 08:04 11/28/16 08:04 Labs: Short CBC 11/28/16 Range/Units 08:04 WBC 7.4 (4.3-11.1) K/mcL Hgb 10.5 L (11.5-15.4) g/dL Hct 31.5 L (35.3-44.9) % Plt Count 215 (140-400) K/mcL BMP 07/10/17 08:04 Sodium 129 L Potassium 4.7 H Chloride 103 Carbon Dioxide 19 BUN 15 D Creatinine 0.73 Glucose 94 Calcium 8.6 - ABG Interpretation ABG results: PT/INR, D-dimer PT 22.5 Seconds (9.4-12.1) H 11/28/16 08:04 - VTE Documentation of Mechanical Device: Intermittent pneumatic compression device Consult Discharge Plan - Plan Additional Instructions: Follow up with your PCP in 1 week. You will need to have your sodium rechecked in one week. Take medications only as prescribed. Referrals: Sascha Roberson MD [Primary Care Provider] - 12/01/16 11:30 am Prescriptions: Gabapentin [Neurontin] 100 mg PO TID 30 Days Lidocaine Patch [Lidoderm 5% patch] 1 each TP DAILY 30 Days Sennosides/Docusate Sodium [Senna Plus] 1 each PO BID 30 Days Valacyclovir HCl [Valtrex] 1,000 mg PO TID 7 Days <Ady Fragoso - Last Filed: 11/28/16 19:12> Date of Encounter: 11/28/16 - Constitutional Vitals: Temp Pulse Resp BP Pulse Ox 98.7 F 67 16 155/51 94 11/28/16 11:36 11/28/16 12:44 11/28/16 12:44 11/28/16 12:44 11/28/16 12:44 Internal Medicine: Result - Labs CBC & Chem 7: 11/28/16 08:04 11/28/16 08:04 Labs: Short CBC 11/28/16 Range/Units 08:04 WBC 7.4 (4.3-11.1) K/mcL Hgb 10.5 L (11.5-15.4) g/dL Hct 31.5 L (35.3-44.9) % Plt Count 215 (140-400) K/mcL [facility] 11/28/16 08:04 Sodium 129 L Potassium 4.7 H Chloride 103 Carbon Dioxide 19 BUN 15 D Creatinine 0.73 Glucose 94 Calcium 8.6 - ABG Interpretation ABG results: PT/INR, D-dimer PT 22.5 Seconds (9.4-12.1) H 11/28/16 08:04 - Attending Attestation I examined this patient and my medical decision-making was reviewed with the Resident Physician, Dr Castro. I agree with the documented findings, disposition and treatment plan as described except to the extent set forth below. there is no evidence of aacute or chronic heart failure. shingles is a new problem for today; patient has read macules on the right buttock and thighin a dermatomal distribution. Consistent with shingles. start Valtrex.start gabapentin..
[2016-11-28] MEDS ORDERED: Gabapentin 100 MG CAPSULE PO SCH (15:00)
== END 2016-11-28 14:20 | DRG 641 ==
LOC: 2ANU 13:16 → EMEROO 13:16 → 2ANU 18:29 → SUATTDRO 20:39 → ICNU 22:36 → 2NNU 11-24 17:37
PROVIDERS: ADMIT Internal Medicine; ATTEND Internal Medicine

== ENCOUNTER 2018-12-18 14:55 | Observation (INO) ==
[2018-12-18 12:00] LABS: Basophils % 0.3 %; Eosinophils # 0.1 K/mcL (0.0-0.6); Eosinophils % 0.8 %; Hemoglobin 11.5 g/dL (11.5-15.4); Immature Granulocytes % 0.3 % (0-4); Lymphocytes % 25.3 %; Mean Corpuscular HGB Conc 31.1 g/dL (31.6-35.5); Mean Corpuscular Hemoglobin 32.9 pg (28.0-33.3); Mean Corpuscular Volume 105.7 fL (83.0-100.0); Mean Platelet Volume 9.2 fL (9.4-12.4); Monocytes % 12.3 %; Neutrophils # 4.7 K/mcL (1.6-8.9); Platelet Count 280 K/mcL (140-400); Red Cell Distribution Width 14.9 % (11.5-14.5); White Blood Count 7.8 K/mcL (4.3-11.1)
[2018-12-18 12:08] LABS: INR 2.8; Prothrombin Time 31.8 Seconds (9.4-12.1)
[2018-12-18 12:11] LABS: BUN/Creatinine Ratio 22 (6-26); Blood Urea Nitrogen 21 mg/dL (8-23); Calcium 9.3 mg/dL (8.6-10.3); Carbon Dioxide 25 mEq/L (23-29); Chloride 99 mEq/L (98-107); Glucose 89 mg/dL (70-105); Osmolality,Calculated 276 (280-300); Potassium 4.8 mEq/L (3.5-5.1); Sodium 132 mEq/L (136-145); eGFR For African Americans > 60 (> 60); eGFR For Non-African Americans 55 (> 60)
--- NOTE | 2018-12-18 13:23 | History & Physical Report ---
Date of Encounter: 12/18/18 Time of Encounter: 12:00 24 Hour HP Update - Instructions Instructions: If the History and Physical is less than 30 days old and was completed prior to A.M. admission and or procedure and has NOT been updated on calendar day of procedure please complete this update prior to performing procedure. - Update Patient reports changes in Medical Condition: No Changes in examination, assessment, or condition: No Changes in Medication: No Preop tests/diagnostics Reviewed: Yes Review of Patient reveals the following changes:: Converted to NSR at home. Additions to current History and Physical: Presents for sotalol titration.Patient SOB improved since office visit. - Attending Attestation Ms. Castro presents for planned sotalol titration for planned PAF. Currently sinus bradycardia. Notes she was recently started on spironlactone by PCP. SOB improved. HR noted to be in 50's. Pt has history of single chamber ICD with lower rate set at 50. Unable to increase lower rate due to single chamber. Patient denies dizziness or syncope. C/o fatigue. Baseline EKG shows sinus bradycardia, QT/QTC 427/413ms, QRS 81ms. Reviewed above with Dr. Garrison Boggs. Recommends decreasing cardizem and increasing sotalol to 160 mg Q12hr. Patient is on coumadin followed by coumadin clinic. INR 1.6 on 11/25/18. Pt would need SORAIDA if DCCV indicated. Currently sinus bradycardia.
[~2018-12-18 14:55] MED LIST: NON-FORMULARY MEDICATION 1 EACH EACH (Oxygen 2 L) PRN; Nitroglycerin 0.4 MG TAB.SUBL SL PRN
[2018-12-18] MEDS: *HR* Warfarin 1 MG TABLET PO SCH (17:43)
[2018-12-18] MEDS ORDERED: hydrALAZINE 25 MG TABLET PO ONE (17:56)
[2018-12-18] MEDS ORDERED: Artificial Tears SOLN 15 ML BOTTLE BOTH EYES PRN (20:53)
[2018-12-18] MEDS: hydrALAZINE 25 MG TABLET PO SCH (21:26)
[2018-12-18] MEDS: Diltiazem CD (24hr) 120 MG CAPSULE PO SCH (23:13)
[2018-12-19] MEDS: Acetaminophen 325 MG TABLET PO PRN ×4 (00:53→19:48)
[2018-12-19] MEDS ORDERED: *HR* Warfarin 1 MG TABLET PO SCH ×2 (09:00→18:00)
[2018-12-19] MEDS: hydrALAZINE 25 MG TABLET PO SCH ×3 (10:14→21:19)
[2018-12-19] MEDS: Furosemide 40 MG TABLET PO SCH (10:14)
[2018-12-19] MEDS: Spironolactone 25 MG TABLET PO SCH (10:14)
[2018-12-19] MEDS: Isosorbide MONOnitrate (24 HR) 30 MG TAB.ER.24H PO SCH (10:14)
[2018-12-19] MEDS: Fluticasone Propionate Nasal 50 MCG/SPRAY BOTTLE NS SCH (10:15)
--- NOTE | 2018-12-19 10:48 | Electrophysiology ProgressNote ---
Date of Encounter: 12/19/18 Time of Encounter: 10:46 Assessment and Plan (1) PAF (paroxysmal atrial fibrillation) Current Visit: Yes Status: Acute Admitted 12/18/18 for Sotalol titration/increase to 160mg BID for PAF. Currently sinus bradycardia. Notes she was recently started on spironlactone by PCP. SOB improved. HR noted to be in 50's. Pt has history of single chamber ICD with lower rate set at 50. Unable to increase lower rate due to single chamber. Patient denies dizziness or syncope. C/o fatigue. Baseline EKG shows sinus bradycardia, QT/QTC 427/413ms, QRS 81ms. EKG 12/19 sinus marcela, QT/QTc 450/446ms. Stable. Reviewed above with Dr. Garrison Boggs. Recommended decreasing cardizem and increasing sotalol to 160 mg Q12hr. Patient is on coumadin followed by coumadin clinic. INR 1.6 on 11/25/18. Pt would need SORAIDA if DCCV indicated. Currently sinus bradycardia. Pt remains hypertensive. Will increase Hydralazine from 25mg BID to 50mg TID. Discussion w patient/family: The assessment and plan as outlined above was discussed with the patient and/or family members who expressed understanding and agreement. All questions were answered. Thank you for involving us in the care of your patient. Please call with any questions. I will discuss all the above with Dr. Garrison Boggs and make changes as necessary. Subjective Principal diagnosis: PAF Interval history: S/P 2 increased Sotalol doses. Admits to fatigue and mild dyspnea this AM, neither are acute complaints. Denies chest pain. Objective Vital Signs, Last 4 Hours Temp Pulse Resp BP Pulse Ox 12/19/18 10:12 57 16 169/69 94 12/19/18 06:54 97.7 F 57 16 184/68 98 Vital Signs Temp Pulse Resp BP Pulse Ox 12/19/18 10:12 57 16 169/69 94 12/19/18 06:54 97.7 F 57 16 184/68 98 12/19/18 03:30 97.7 F 55 16 167/60 98 12/19/18 00:08 61 171/54 12/18/18 23:12 97.8 F 65 15 202/75 91 12/18/18 19:32 97.9 F 64 16 185/76 92 12/18/18 17:41 204/68 12/18/18 17:40 204/70 12/18/18 15:00 97.6 F 63 16 172/69 94 Intake and Output 12/18/18 12/19/18 12/19/18 23:59 07:59 15:59 Intake Total 0 / 0 800 / 800 Output Total 600 / 600 Balance -600 / -600 800 / 800 Intake: Oral 0 / 0 800 / 800 Output: Urine 600 / 600 Other: Meal Dinner Percent of Meal Consumed 100% Weight 78.6 kg Patient Weight 12/19/18 23:59 Weight 78.6 kg General: Conversant, No Apparent Distress HEENT: Atraumatic, Normocephaly, Mucus Membranes Moist Neck: No JVD, Normal carotid pulses Cardiac: Reg Rate and Rhythm, Normal S1 and S2, No Murmur Lungs: Normal Breath Sounds, No Wheeze, Rales, Rhonchi Neuro: Alert and responsive, No focal deficits noted Abdomen: Soft, Non-Tender Skin: No rashes noted on visualized skin Musculoskeletal: No Chest Wall Tenderness Extremities: No Clubbing, No Cyanosis, No Edema, Normal Pulses Results 12/18/18 11:37 12/18/18 11:37 Lab Results 12/18/18 12/18/18 12/18/18 11:37 11:37 11:37 WBC 7.8 Hgb 11.5 Hct 37.0 Plt Count 280 INR 2.8 Sodium 132 L Potassium 4.8 Chloride 99 Carbon Dioxide 25 BUN 21 Creatinine 0.96 Glucose 89 Calcium 9.3 Short CBC 12/18/18 Range/Units 11:37 WBC 7.8 (4.3-11.1) K/mcL Hgb 11.5 (11.5-15.4) g/dL Hct 37.0 (35.3-44.9) % Plt Count 280 (140-400) K/mcL Neutrophils # 4.7 (1.6-8.9) K/mcL BMP 12/18/18 Range/Units 11:37 Sodium 132 L (136-145) mEq/L Potassium 4.8 (3.5-5.1) mEq/L Chloride 99 (98-107) mEq/L Carbon Dioxide 25 (23-29) mEq/L BUN 21 (8-23) mg/dL Creatinine 0.96 (0.60-1.20) mg/dL Glucose 89 (70-105) mg/dL Calcium 9.3 (8.6-10.3) mg/dL Active Medications Acetaminophen (Tylenol) 650 mg PO Q6HR PRN PRN Reason: Pain Stop: 06/20/19 00:34 Last Admin: 12/19/18 07:11 Dose: 650 mg Documented by: Artificial Tears (Akwa Tears) 1 drop BOTH EYES QID PRN; Protocol PRN Reason: dry eyes Stop: 06/19/19 21:01 Last Admin: 12/18/18 21:31 Dose: 1 drop Documented by: Clopidogrel Bisulfate (Plavix) 75 mg PO [facility] Stop: 06/19/19 22:16 Last Admin: 12/18/18 23:13 Dose: 75 mg Documented by: Diltiazem HCl (Cardizem Cd) 120 mg PO [facility] Stop: 06/19/19 22:16 Last Admin: 12/18/18 23:13 Dose: 120 mg Documented by: Fluticasone Propionate (Flonase) 100 mcg NS DAILY REPLACED BY [facility]; Protocol Stop: 06/20/19 09:01 Last Admin: 12/19/18 10:15 Dose: 100 mcg Documented by: Furosemide (Lasix) 40 mg PO DAILY REPLACED BY [facility] Stop: 06/20/19 09:01 Last Admin: 12/19/18 10:14 Dose: 40 mg Documented by: Hydralazine HCl (Hydralazine) 25 mg PO BID REPLACED BY [facility] Stop: 06/19/19 21:01 Last Admin: 12/19/18 10:14 Dose: 25 mg Documented by: Isosorbide Mononitrate (Imdur) 90 mg PO DAILY REPLACED BY [facility] Stop: 06/20/19 09:01 Last Admin: 12/19/18 10:14 Dose: 90 mg Documented by: Losartan Potassium (Cozaar) 100 mg PO DAILY REPLACED BY [facility]; Protocol Stop: 06/20/19 09:01 Last Admin: 12/19/18 10:14 Dose: 100 mg Documented by: Nitroglycerin (Nitroglycerin) 0.4 mg SL Q5MIN PRN PRN Reason: CHEST PAIN Stop: 06/19/19 13:12 Omeprazole (Prilosec) 20 mg PO DAILY REPLACED BY [facility] Stop: 06/20/19 09:01 Last Admin: 12/19/18 10:14 Dose: 20 mg Documented by: Simvastatin (Zocor) 10 mg PO HS REPLACED BY [facility] Stop: 06/20/19 21:01 Sotalol HCl (Betapace) 160 mg PO Q12H REPLACED BY [facility] Stop: 06/19/19 18:01 Last Admin: 12/19/18 05:41 Dose: 160 mg Documented by: Spironolactone (Aldactone) 25 mg PO DAILY REPLACED BY [facility] Stop: 06/20/19 09:01 Last Admin: 12/19/18 10:14 Dose: 25 mg Documented by: Warfarin Sodium (Coumadin) 0.5 mg PO TuThSa@1800 REPLACED BY [facility]; Protocol Stop: 06/19/19 18:01 Last Admin: 12/18/18 17:43 Dose: 0.5 mg Documented by: Warfarin Sodium (Coumadin) 1 mg PO SuMoWeFr@1800 REPLACED BY [facility] Stop: 06/20/19 18:01 - EKG Interpretation EKG results cardiology: other (12 hr tele AVG HR 57, SR) Consult Discharge Plan - Plan Referrals: Sascha Rboerson MD [Primary Care Provider] -
[2018-12-19] MEDS: Celecoxib 200 MG CAPSULE PO SCH (13:06)
[2018-12-19] MEDS: Diltiazem CD (24hr) 120 MG CAPSULE PO SCH (21:19)
[2018-12-20] MEDS ORDERED: NIFEdipine XL (24 HR) 30 MG TAB.ER.24 PO SCH (09:30)
[2018-12-20] MEDS: Isosorbide MONOnitrate (24 HR) 30 MG TAB.ER.24H PO SCH (10:13)
[2018-12-20] MEDS: Furosemide 40 MG TABLET PO SCH (10:14)
[2018-12-20] MEDS: Spironolactone 25 MG TABLET PO SCH (10:14)
[2018-12-20] MEDS: hydrALAZINE 25 MG TABLET PO SCH ×2 (10:14→14:47)
[2018-12-20] MEDS: Fluticasone Propionate Nasal 50 MCG/SPRAY BOTTLE NS SCH (10:14)
[2018-12-20] MEDS: Celecoxib 200 MG CAPSULE PO SCH (10:14)
--- NOTE | 2018-12-20 12:03 | Discharge Summary ---
Date of Encounter: 12/20/18 Time of Encounter: 11:54 - Discharge Diagnosis (1) Atrial fibrillation Priority: Primary Status: Chronic Qualifiers: Atrial fibrillation type: paroxysmal Qualified Code(s): I48.0 - Paroxysmal atrial fibrillation (2) Coronary artery disease Priority: Secondary Status: Chronic Qualifiers: Coronary Disease-Associated Artery/Lesion type: [place] artery [place] vs. transplanted heart: [place] heart Associated angina: without angina Qualified Code(s): I25.10 - Atherosclerotic heart disease of [place] coronary artery without angina pectoris (3) ICD (implantable cardioverter-defibrillator) in place Priority: Secondary Status: Chronic - Hospital Course Hospital course: Ms. Castro is a 83 year old female with history of PAF on coumadin, Chronic diastolic CHF, single chamber ICD (prior cardiomyopathy), HTN who presented for sotalol therapy titration for symptomatic PAF. Sotalol increased from 120 mg BID to 180 mg BID. No recurrent afib seen in last 24 hours. On presentation she had sinus bradycardia. She is tolerating medication increase well. She was noted to be hypertensive with b/p as high as 202/75 during stay. Notes elevated b/p at home recently. Hydralizine was increased and cardizen changed to procardia. B/p improved this afternoon at 133/85. 5th dose sotalol due at 1730. If EKG is okay after hr 5th dose she will be discharged this evening. She will continue her coumadin and follow with coumadin clinic as scheduled. Patient agrees with plan. EKGs for sotalol therapy increase: Baseline EKG shows sinus bradycardia, QT/QTC 427/413ms, QRS 81ms. EKG 12/19 sinus marcela, QT/QTc 450/446ms. EKG 12/20/18, sinus bradycardia, QT/QTc 442/433. - Time Spent with Patient Total time spent providing and/or coordinating discharge services: Greater than 30 minutes (D/c summary, med rec, medication information) - Discharge Medications Prescriptions: New Sotalol [Betapace] 160 mg PO Q12H #120 tablet hydrALAZINE [HydrALAZINE] 50 mg PO TID #90 tablet NIFEdipine XL (24 HR) [Procardia XL] 30 mg PO DAILY #30 tab.er.24 Continued Clopidogrel [Plavix] 75 mg PO DAILY Pravastatin Sodium [Pravachol] 20 mg PO DAILY Isosorbide MONOnitrate (24 HR) [Imdur] 90 mg PO DAILY Fluticasone Propionate Nasal [Flonase] 2 spr NS DAILY Spironolactone [Aldactone] 25 mg PO DAILY Omeprazole 20 mg PO DAILY Warfarin Sodium 1 mg PO [place] Losartan Potassium [Cozaar] 100 mg PO DAILY Warfarin [Coumadin] 0.5 mg PO TUTHSA Nitroglycerin [Nitrostat] 0.4 mg SL PRN PRN PRN Reason: Pain Furosemide [Lasix] 40 mg PO DAILY Discontinued Sotalol [Betapace] 120 mg PO Q12HR #60 tab Celecoxib [Celebrex] 200 mg PO DAILY Diltiazem CD (24hr) [Cardizem CD] 180 mg PO DAILY hydrALAZINE [HydrALAZINE] 25 mg PO BID Home Medications: Clopidogrel [Plavix] 75 mg PO DAILY 02/17/15 [History] Isosorbide MONOnitrate (24 HR) [Imdur] 90 mg PO DAILY 02/17/15 [History] Pravastatin Sodium [Pravachol] 20 mg PO DAILY 02/17/15 [History] Fluticasone Propionate Nasal [Flonase] 2 spr NS DAILY 01/02/17 [History] Nitroglycerin [Nitrostat] 0.4 mg SL PRN PRN 04/07/17 [History] Furosemide [Lasix] 40 mg PO DAILY 11/25/18 [History] Omeprazole 20 mg PO DAILY 12/18/18 [History] Spironolactone [Aldactone] 25 mg PO DAILY 12/18/18 [History] Losartan Potassium [Cozaar] 100 mg PO DAILY 12/19/18 [History] Warfarin Sodium 1 mg PO SUMOWEFR 12/19/18 [History] Warfarin [Coumadin] 0.5 mg PO TUTHSA 12/19/18 [History] NIFEdipine XL (24 HR) [Procardia XL] 30 mg PO DAILY #30 tab.er.24 12/20/18 [Rx] Sotalol [Betapace] 160 mg PO Q12H #120 tablet 12/20/18 [Rx] hydrALAZINE [HydrALAZINE] 50 mg PO TID #90 tablet 12/20/18 [Rx] Allergies/Adverse Reactions: Allergy/AdvReac Type Severity Reaction Status Date / Time codeine Allergy Rash Verified 11/25/18 19:44 morphine Allergy Rash Verified 11/25/18 19:44 meperidine [From Demerol] AdvReac Hallucinati Verified 11/25/18 19:44 ng AMIODERONE AdvReac See Uncoded 11/25/18 20:33 Comments Date of admission: 12/18/18 10:19 Primary care physician: Sascha Roberson MD Consults: none Discharging clinician: Trent Mcleod Anticipated date of discharge: 12/20/18 Physical Examination Vital Signs, Last 4 Hours Temp Pulse Resp BP Pulse Ox 12/20/18 11:04 98.6 F 59 16 133/68 94 General: Conversant, No Apparent Distress HEENT: Atraumatic, Normocephaly, Mucus Membranes Moist Neck: No JVD, Normal carotid pulses Cardiac: Reg Rate and Rhythm, Normal S1 and S2, No Murmur Lungs: Normal Breath Sounds, No Wheeze, Rales, Rhonchi Neuro: Alert and responsive, No focal deficits noted Abdomen: Soft, Non-Tender Skin: No rashes noted on visualized skin Musculoskeletal: No Chest Wall Tenderness Extremities: No Clubbing, No Cyanosis, No Edema, Normal Pulses - Patient Status Disposition: Home, Self-Care Condition: Good Functional capacity at discharge: independent ambulation Overall status at discharge: patient is progressing back to baseline - Discharge Instructions Follow Up With: Sascha Roberson MD [Primary Care Provider] - Dhruv Gonzales DO [Partnered Physician] - - Diet and Activity Activity: increase activity as tolerated Diet: low fat, low cholesterol
--- NOTE | 2018-12-20 13:15 | Electrocardiograph Report ---
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
--- NOTE | 2018-12-20 13:51 | Electrocardiograph Report ---
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
[2018-12-20 15:20] VITALS: BP 145/73
[2018-12-20 15:29] LABS: INR 2.6
[2018-12-20] MEDS: *HR* Warfarin 1 MG TABLET PO SCH (17:28)
--- NOTE | 2018-12-20 18:13 | Electrocardiograph Report ---
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
--- NOTE | 2018-12-24 13:03 | Electrocardiograph Report ---
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
== END 2018-12-20 20:05 | disposition home or self-care (01) ==
LOC: 3BNU
PROVIDERS: ADMIT Internal Medicine Clinical Cardiac Electrophysiology; ATTEND Internal Medicine Clinical Cardiac Electrophysiology

== ENCOUNTER 2019-05-05 13:48 | Inpatient (IN) ==
[2019-05-05] MEDS ORDERED: Naloxone 0.4 MG/ML INJ IVP PRN (17:27)
[2019-05-05] MEDS ORDERED: Warfarin perPT PO PRN (18:00)
[2019-05-05] MEDS: *HR* HYDROcodone/Acet 5/325 mg TABLET PO PRN (18:12)
[2019-05-05 19:16] LABS: Adenovirus Not Detected (Not Detect); Bordetella Pertussis Not Detected (Not Detect); Chlamydophila pneumoniae Not Detected (Not Detect); Coronavirus 229E Not Detected (Not Detect); Coronavirus HKU1 Not Detected (Not Detect); Coronavirus NL63 Not Detected (Not Detect); Coronavirus OC43 Not Detected (Not Detect); Human Metapneumovirus Not Detected (Not Detect); Human Rhinovirus/Enterovirus Not Detected (Not Detect); Influenza A Subtype 2009 H1 Not Detected (Not Detect); Influenza A Untypeable Not Detected (Not Detect); Influenza B Not Detected (Not Detect); Mycoplasma pneumoniae Not Detected (Not Detect); Parainfluenza Virus 1 Not Detected (Not Detect); Parainfluenza Virus 2 Not Detected (Not Detect); Parainfluenza Virus 3 Not Detected (Not Detect); Parainfluenza Virus 4 Not Detected (Not Detect); Respiratory Syncytial Virus Not Detected (Not Detect)
[2019-05-05] MEDS ORDERED: *HR* Warfarin 1 MG TABLET PO ONE (21:00)
[2019-05-05] MEDS ORDERED: SOTALOL PO SCH (21:00)
[2019-05-05] MEDS: Levalbuterol Neb 0.63 MG/3 ML IH SCH (21:44)
[2019-05-05] MEDS: hydrALAZINE 25 MG TABLET PO SCH (21:51)
[2019-05-06] MEDS: *HR* HYDROcodone/Acet 5/325 mg TABLET PO PRN (00:17)
[2019-05-06] MEDS: Levalbuterol Neb 0.63 MG/3 ML IH SCH ×4 (04:05→22:35)
[2019-05-06 07:00] LABS: Basophils % 0.1 %; Hematocrit 30.7 % (35.3-44.9); Hemoglobin 9.9 g/dL (11.5-15.4); Immature Granulocytes % 0.5 % (0-4); Lymphocytes # 1.1 K/mcL (0.6-4.6); Lymphocytes % 14.1 %; Mean Corpuscular HGB Conc 32.2 g/dL (31.6-35.5); Mean Corpuscular Hemoglobin 32.4 pg (28.0-33.3); Monocytes # 0.8 K/mcL (0.0-1.3); Monocytes % 10.1 %; Neutrophils # 5.9 K/mcL (1.6-8.9); Platelet Count 248 K/mcL (140-400); Red Blood Count 3.06 M/mcL (3.82-4.97); Red Cell Distribution Width 13.8 % (11.5-14.5); Segmented Neutrophils % 75.2 %; White Blood Count 7.8 K/mcL (4.3-11.1)
[2019-05-06 07:01] LABS: Mean Corpuscular Volume 100.3 fL (83.0-100.0)
[2019-05-06 07:09] LABS: INR 1.8; Prothrombin Time 20.3 Seconds (9.4-12.1)
[2019-05-06 07:19] LABS: BUN/Creatinine Ratio 26 (6-26); Blood Urea Nitrogen 26 mg/dL (8-23); Calcium 8.9 mg/dL (8.6-10.3); Carbon Dioxide 22 mEq/L (23-29); Chloride 102 mEq/L (98-107); Glucose 117 mg/dL (70-105); Magnesium 2.1 mg/dL (1.6-2.6); Osmolality,Calculated 290 (280-300); Potassium 4.6 mEq/L (3.5-5.1); Sodium 137 mEq/L (136-145); eGFR For African Americans > 60 (> 60); eGFR For Non-African Americans 52 (> 60)
[2019-05-06] MEDS ORDERED: cefTRIAXone 1,000 MG in 0.9 % Sodium Chloride Mini Bag 100 ML IVP SCH (09:00)
[2019-05-06] MEDS ORDERED: Azithromycin 250 MG TABLET PO SCH (09:00)
[2019-05-06] MEDS: Ondansetron 4 MG/2 ML VIAL IVP PRN (09:03)
[2019-05-06] MEDS: Isosorbide MONOnitrate (24 HR) 30 MG TAB.ER.24H PO SCH (09:04)
[2019-05-06] MEDS: hydrALAZINE 25 MG TABLET PO SCH ×3 (09:04→20:20)
[2019-05-06] MEDS: cefTRIAXone 1,000 MG in 0.9 % Sodium Chloride Mini Bag 100 ML IVPB SCH (09:04)
[2019-05-06] MEDS: MethylPREDNISolone 40 MG/ML VIAL IVP SCH (09:04)
[2019-05-06] MEDS: amLODIPine 5 MG TABLET PO SCH (09:05)
[2019-05-06] MEDS: Furosemide 40 MG/4 ML VIAL IVP SCH (09:05)
[2019-05-06] MEDS ORDERED: *HR* Heparin 5,000 UNIT/ML VIAL IVP PRN ×2 (14:55)
[2019-05-06] MEDS ORDERED: Heparin 25,000 UNIT/250 ML D5W 25,000 UNIT/250 ML IV.SOLN IVC SCH (15:00)
[2019-05-06] MEDS ORDERED: *HR* Warfarin 1 MG TABLET PO ONE (18:00)
[2019-05-06] MEDS ORDERED: Perflutren Lipid Microsphere 1.3 ML in 0.9 % Sodium Chloride 8.7 ML IVP ONE (20:02)
[2019-05-06] MEDS ORDERED: Melatonin 3 MG TABLET PO SCH (21:00)
[2019-05-06] MEDS ORDERED: Levalbuterol Neb 0.63 MG/3 ML IH PRN (22:53)
[2019-05-07 06:35] LABS: Hematocrit 30.4 % (35.3-44.9); Mean Corpuscular HGB Conc 32.9 g/dL (31.6-35.5); Mean Corpuscular Hemoglobin 32.1 pg (28.0-33.3); Mean Corpuscular Volume 97.4 fL (83.0-100.0); Mean Platelet Volume 9.9 fL (9.4-12.4); Platelet Count 273 K/mcL (140-400); Red Blood Count 3.12 M/mcL (3.82-4.97); Red Cell Distribution Width 13.9 % (11.5-14.5); White Blood Count 9.6 K/mcL (4.3-11.1)
[2019-05-07 06:41] LABS: INR 1.9; Prothrombin Time 21.1 Seconds (9.4-12.1)
[2019-05-07 06:54] LABS: BUN/Creatinine Ratio 36 (6-26); Blood Urea Nitrogen 38 mg/dL (8-23); Carbon Dioxide 24 mEq/L (23-29); Chloride 99 mEq/L (98-107); Glucose 121 mg/dL (70-105); Osmolality,Calculated 296 (280-300); Potassium 4.4 mEq/L (3.5-5.1); Sodium 138 mEq/L (136-145); eGFR For African Americans > 60 (> 60); eGFR For Non-African Americans 50 (> 60)
[2019-05-07] MEDS: Ondansetron 4 MG/2 ML VIAL IVP PRN (08:15)
[2019-05-07] MEDS: cefTRIAXone 1,000 MG in 0.9 % Sodium Chloride Mini Bag 100 ML IVPB SCH (08:23)
[2019-05-07] MEDS: Isosorbide MONOnitrate (24 HR) 30 MG TAB.ER.24H PO SCH (08:24)
[2019-05-07] MEDS: amLODIPine 5 MG TABLET PO SCH (08:24)
[2019-05-07] MEDS: hydrALAZINE 25 MG TABLET PO SCH ×3 (08:24→22:14)
[2019-05-07] MEDS: Furosemide 40 MG/4 ML VIAL IVP SCH (08:24)
[2019-05-07] MEDS: MethylPREDNISolone 40 MG/ML VIAL IVP SCH (08:24)
[2019-05-07] MEDS: Pantoprazole 40 MG VIAL IVP SCH (13:02)
[2019-05-07] MEDS ORDERED: *HR* Warfarin 1 MG TABLET PO ONE (18:00)
[2019-05-07] MEDS ORDERED: Warfarin perPT PO PRN (18:00)
[2019-05-07] MEDS ORDERED: NON-FORMULARY MEDICATION 1 EACH EACH (Melatonin 10 MG) PO SCH (21:00)
[2019-05-07] MEDS: Melatonin 3 MG TABLET PO SCH (22:14)
[2019-05-08 06:42] LABS: INR 1.9; Prothrombin Time 21.1 Seconds (9.4-12.1)
[2019-05-08 08:38] LABS: Calcium 9.4 mg/dL (8.6-10.3); Magnesium 2.7 mg/dL (1.6-2.6); Potassium 4.4 mEq/L (3.5-5.1)
[2019-05-08] MEDS ORDERED: NON-FORMULARY MEDICATION 1 EACH EACH (Losartan Potassium [Cozaar] 100 MG) PO SCH (09:00)
[2019-05-08] MEDS ORDERED: Fluticasone Propionate Nasal 50 MCG/SPRAY BOTTLE NS SCH (09:00)
[2019-05-08] MEDS: Fluticasone Propionate Nasal 50 MCG/SPRAY BOTTLE NS SCH (09:00)
[2019-05-08] MEDS ORDERED: NON-FORMULARY MEDICATION 1 EACH EACH (Omeprazole 20 MG) PO SCH (09:00)
[2019-05-08] MEDS: Furosemide 40 MG/4 ML VIAL IVP SCH (09:32)
[2019-05-08] MEDS: Pantoprazole 40 MG VIAL IVP SCH (09:33)
[2019-05-08] MEDS: Isosorbide MONOnitrate (24 HR) 30 MG TAB.ER.24H PO SCH (09:33)
[2019-05-08] MEDS: cefTRIAXone 1,000 MG in 0.9 % Sodium Chloride Mini Bag 100 ML IVPB SCH (09:34)
[2019-05-08] MEDS: amLODIPine 5 MG TABLET PO SCH (09:34)
[2019-05-08] MEDS: predniSONE 20 MG TABLET PO SCH (09:34)
[2019-05-08] MEDS: hydrALAZINE 25 MG TABLET PO SCH ×3 (09:34→20:52)
[2019-05-08] MEDS ORDERED: *HR* Warfarin 1 MG TABLET PO ONE (18:00)
[2019-05-08] MEDS: Melatonin 3 MG TABLET PO SCH (20:52)
[2019-05-08] MEDS ORDERED: Lidocaine 4% CREAM (LMX) 5 GM TP PRN (20:57)
[2019-05-08] MEDS: Acetaminophen 325 MG TABLET PO PRN (23:09)
[2019-05-09] MEDS: Acetaminophen 325 MG TABLET PO PRN ×3 (03:54→21:06)
[2019-05-09 07:11] LABS: Calcium 9.3 mg/dL (8.6-10.3); Potassium 4.1 mEq/L (3.5-5.1)
[2019-05-09 07:14] LABS: Hematocrit 32.4 % (35.3-44.9); Hemoglobin 10.3 g/dL (11.5-15.4); Mean Corpuscular HGB Conc 31.8 g/dL (31.6-35.5); Mean Corpuscular Hemoglobin 31.9 pg (28.0-33.3); Mean Corpuscular Volume 100.3 fL (83.0-100.0); Mean Platelet Volume 10.1 fL (9.4-12.4); Platelet Count 273 K/mcL (140-400); Red Blood Count 3.23 M/mcL (3.82-4.97); Red Cell Distribution Width 13.2 % (11.5-14.5); White Blood Count 8.2 K/mcL (4.3-11.1)
[2019-05-09 07:23] LABS: Prothrombin Time 22.5 Seconds (9.4-12.1)
[2019-05-09] MEDS: predniSONE 20 MG TABLET PO SCH (10:04)
[2019-05-09] MEDS: hydrALAZINE 25 MG TABLET PO SCH ×3 (10:04→21:05)
[2019-05-09] MEDS: amLODIPine 5 MG TABLET PO SCH (10:04)
[2019-05-09] MEDS: Isosorbide MONOnitrate (24 HR) 30 MG TAB.ER.24H PO SCH (10:04)
[2019-05-09] MEDS: Fluticasone Propionate Nasal 50 MCG/SPRAY BOTTLE NS SCH (10:08)
[2019-05-09] MEDS: Furosemide 40 MG TABLET PO SCH (12:27)
[2019-05-09] MEDS ORDERED: *HR* Warfarin 1 MG TABLET PO ONE (18:00)
[2019-05-09] MEDS: Melatonin 3 MG TABLET PO SCH (21:05)
[2019-05-10 04:27] LABS: Prothrombin Time 23.2 Seconds (9.4-12.1)
[2019-05-10 04:31] LABS: Calcium 9.1 mg/dL (8.6-10.3); Potassium 4.4 mEq/L (3.5-5.1)
[2019-05-10] MEDS: hydrALAZINE 25 MG TABLET PO SCH ×3 (09:04→19:29)
[2019-05-10] MEDS: Furosemide 40 MG TABLET PO SCH (09:04)
[2019-05-10] MEDS: amLODIPine 5 MG TABLET PO SCH (09:05)
[2019-05-10] MEDS: predniSONE 20 MG TABLET PO SCH (09:05)
[2019-05-10] MEDS: Isosorbide MONOnitrate (24 HR) 30 MG TAB.ER.24H PO SCH (09:05)
[2019-05-10] MEDS: Fluticasone Propionate Nasal 50 MCG/SPRAY BOTTLE NS SCH (09:08)
[2019-05-10] MEDS: Acetaminophen 325 MG TABLET PO PRN (11:58)
[2019-05-10] MEDS ORDERED: *HR* Warfarin 1 MG TABLET PO ONE (18:00)
[2019-05-10] MEDS: Melatonin 3 MG TABLET PO SCH (19:29)
[2019-05-11] MEDS: Gabapentin 300 MG CAPSULE PO PRN ×2 (00:30→08:57)
[2019-05-11 04:29] LABS: INR 1.7; Prothrombin Time 19.3 Seconds (9.4-12.1)
[2019-05-11 04:30] LABS: Hematocrit 34.5 % (35.3-44.9); Hemoglobin 11.4 g/dL (11.5-15.4); Mean Corpuscular Hemoglobin 31.8 pg (28.0-33.3); Mean Corpuscular Volume 96.4 fL (83.0-100.0); Mean Platelet Volume 10.1 fL (9.4-12.4); Platelet Count 285 K/mcL (140-400); Red Blood Count 3.58 M/mcL (3.82-4.97); Red Cell Distribution Width 13.2 % (11.5-14.5); White Blood Count 10.7 K/mcL (4.3-11.1)
[2019-05-11 04:45] LABS: Calcium 8.9 mg/dL (8.6-10.3)
[2019-05-11] MEDS: amLODIPine 5 MG TABLET PO SCH (08:54)
[2019-05-11] MEDS: Furosemide 40 MG TABLET PO SCH (08:55)
[2019-05-11] MEDS: hydrALAZINE 25 MG TABLET PO SCH ×3 (08:55→22:40)
[2019-05-11] MEDS: Isosorbide MONOnitrate (24 HR) 30 MG TAB.ER.24H PO SCH (08:55)
[2019-05-11] MEDS: Fluticasone Propionate Nasal 50 MCG/SPRAY BOTTLE NS SCH (08:57)
[2019-05-11] MEDS ORDERED: Sennosides/Docusate Sodium TABLET PO PRN (18:33)
[2019-05-11] MEDS: Melatonin 3 MG TABLET PO SCH (22:41)
[2019-05-12 05:59] LABS: INR 1.6; Prothrombin Time 17.9 Seconds (9.4-12.1)
[2019-05-12] MEDS: amLODIPine 5 MG TABLET PO SCH (08:58)
[2019-05-12] MEDS: Furosemide 40 MG TABLET PO SCH (08:58)
[2019-05-12] MEDS: Isosorbide MONOnitrate (24 HR) 30 MG TAB.ER.24H PO SCH (08:59)
[2019-05-12] MEDS: hydrALAZINE 25 MG TABLET PO SCH ×3 (08:59→22:18)
[2019-05-12] MEDS: Fluticasone Propionate Nasal 50 MCG/SPRAY BOTTLE NS SCH (08:59)
[2019-05-12] MEDS: Melatonin 3 MG TABLET PO SCH (22:18)
[2019-05-13 06:40] LABS: Basophils % 0.1 %; Eosinophils # 0.1 K/mcL (0.0-0.6); Eosinophils % 1.1 %; Hematocrit 35.7 % (35.3-44.9); Hemoglobin 11.5 g/dL (11.5-15.4); Immature Granulocytes % 0.4 % (0-4); Lymphocytes # 2.7 K/mcL (0.6-4.6); Mean Corpuscular HGB Conc 32.2 g/dL (31.6-35.5); Mean Corpuscular Hemoglobin 31.7 pg (28.0-33.3); Mean Corpuscular Volume 98.3 fL (83.0-100.0); Monocytes # 1.2 K/mcL (0.0-1.3); Monocytes % 10.4 %; Neutrophils # 7.5 K/mcL (1.6-8.9); Platelet Count 268 K/mcL (140-400); Red Blood Count 3.63 M/mcL (3.82-4.97); Red Cell Distribution Width 13.3 % (11.5-14.5); White Blood Count 11.6 K/mcL (4.3-11.1)
[2019-05-13 07:33] LABS: INR 1.4; Prothrombin Time 16.3 Seconds (9.4-12.1)
[2019-05-13] MEDS: Isosorbide MONOnitrate (24 HR) 30 MG TAB.ER.24H PO SCH (10:00)
[2019-05-13] MEDS: Fluticasone Propionate Nasal 50 MCG/SPRAY BOTTLE NS SCH (10:01)
[2019-05-13] MEDS: Furosemide 40 MG TABLET PO SCH (10:01)
[2019-05-13] MEDS: hydrALAZINE 25 MG TABLET PO SCH ×3 (10:01→21:01)
[2019-05-13] MEDS: amLODIPine 5 MG TABLET PO SCH (10:01)
[2019-05-13] MEDS ORDERED: *HR* Heparin 10,000 UNIT/10 ML VIAL ONE (10:02)
[2019-05-13] MEDS ORDERED: ISOVUE-370 200 ML INFUS..BTL ONE (10:02)
[2019-05-13] MEDS ORDERED: 0.9 % Sodium Chloride 1,000 ML ONE ×2 (10:02→10:18)
[2019-05-13] MEDS ORDERED: Heparin 1,000 UNITS/500 mL 500 ML ONE (10:02)
[2019-05-13] MEDS ORDERED: Nitroglycerin 1,000 MCG/10 ML VIAL IV ONE (10:03)
[2019-05-13] MEDS ORDERED: *HR* Midazolam HCl 2 MG/2 ML VIAL ONE (10:31)
[2019-05-13] MEDS ORDERED: *HR* FentaNYL (PF) 100 MCG/2 ML VIAL ONE (10:31)
[2019-05-13] MEDS: Ondansetron 4 MG/2 ML VIAL IVP PRN (17:03)
[2019-05-13] MEDS ORDERED: *HR* Warfarin 1 MG TABLET PO ONE (18:00)
[2019-05-13] MEDS: Melatonin 3 MG TABLET PO SCH (21:01)
[2019-05-14 06:46] VITALS: BP 161/68
[2019-05-14] MEDS: Furosemide 40 MG TABLET PO SCH (08:01)
[2019-05-14] MEDS: Isosorbide MONOnitrate (24 HR) 30 MG TAB.ER.24H PO SCH (08:01)
[2019-05-14] MEDS: hydrALAZINE 25 MG TABLET PO SCH (08:01)
[2019-05-14] MEDS: Ondansetron 4 MG/2 ML VIAL IVP PRN (08:02)
[2019-05-14] MEDS: amLODIPine 5 MG TABLET PO SCH (08:02)
[2019-05-14] MEDS: Fluticasone Propionate Nasal 50 MCG/SPRAY BOTTLE NS SCH (08:02)
[2019-05-14] MEDS ORDERED: *HR* Warfarin 1 MG TABLET PO ONE (18:00)
== END 2019-05-14 13:45 | disposition home or self-care (01) | DRG 280 ==
LOC: 2ANU → SUATTDRO 15:51
PROVIDERS: ADMIT Internal Medicine; ATTEND Internal Medicine

== ENCOUNTER 2019-06-05 07:57 | Inpatient (IN) ==
[2019-06-05] MEDS ORDERED: Aspirin 81 MG TAB.CHEW PO ONE (08:37)
[2019-06-05] MEDS ORDERED: Nitroglycerin 0.4 MG TAB.SUBL SL PRN ×2 (08:37→14:50)
[2019-06-05] MEDS ORDERED: Ondansetron 4 MG/2 ML VIAL IVP STA (08:37)
[2019-06-05 08:54] LABS: Bilirubin,Urine Negative (Negative); Blood,Urine Negative (Negative); Clarity,Urine Clear (Clear); Color,Urine Yellow (Yellow); Glucose,Urine (UA) Normal (Normal); Ketones,Urine Negative (Negative); Leukocyte Esterase,Urine Moderate (Negative); Nitrite,Urine Negative (Negative); Protein,Urine Negative (Neg-Trace); Specific Gravity,Urine 1.015 (1.010-1.025); Urobilinogen,Urine Normal (Normal)
[2019-06-05 08:56] LABS: Bacteria,Urine None Seen per hpf (None-Few); Hyaline Casts,Urine None Seen per lpf (None-Few); RBC,Urine 0-3 per hpf (0-3); Squamous Epithelial Cell,Urine Many per lpf (None-Few)
[2019-06-05 09:04] LABS: Basophils % 0.2 %; Eosinophils # 0.1 K/mcL (0.0-0.6); Eosinophils % 0.6 %; Hematocrit 32.9 % (35.3-44.9); Hemoglobin 10.6 g/dL (11.5-15.4); Immature Granulocytes % 0.8 % (0-4); Lymphocytes # 1.1 K/mcL (0.6-4.6); Lymphocytes % 10.8 %; Mean Corpuscular HGB Conc 32.2 g/dL (31.6-35.5); Mean Corpuscular Hemoglobin 30.9 pg (28.0-33.3); Mean Corpuscular Volume 95.9 fL (83.0-100.0); Mean Platelet Volume 9.1 fL (9.4-12.4); Monocytes # 0.9 K/mcL (0.0-1.3); Neutrophils # 7.9 K/mcL (1.6-8.9); Platelet Count 267 K/mcL (140-400); Red Blood Count 3.43 M/mcL (3.82-4.97); Red Cell Distribution Width 14.5 % (11.5-14.5); Segmented Neutrophils % 78.6 %; White Blood Count 10.1 K/mcL (4.3-11.1)
[2019-06-05] MEDS ORDERED: 0.9 % Sodium Chloride 250 ML IVC ONE (09:14)
[2019-06-05 09:26] LABS: Alanine Aminotransferase 8 Units/L (7-52); Albumin/Globulin Ratio 1.4 (1.1-2.2); Alkaline Phosphatase 78 Units/L (34-104); Aspartate Amino Transferase 11 Units/L (13-39); BUN/Creatinine Ratio 32 (6-26); Bilirubin,Total 0.5 mg/dL (0.3-1.0); Blood Urea Nitrogen 34 mg/dL (8-23); Calcium 9.3 mg/dL (8.6-10.3); Carbon Dioxide 29 mEq/L (23-29); Chloride 99 mEq/L (98-107); Globulin 2.9 g/dL (2.4-3.5); Glucose 135 mg/dL (70-105); Osmolality,Calculated 294 (280-300); Potassium 4.1 mEq/L (3.5-5.1); Sodium 137 mEq/L (136-145); Total Protein 6.9 g/dL (6.4-8.9); Troponin I < 0.03 ng/mL (< 0.04); eGFR For African Americans 59 (> 60); eGFR For Non-African Americans 49 (> 60)
[2019-06-05] MEDS ORDERED: cefTRIAXone 2,000 MG in Water for inj. (sterile) 20 ML IVP ONE (10:42)
[2019-06-05] MEDS ORDERED: Albuterol 2.5 MG/3 ML NEBULIZER IH ONE (12:17)
[2019-06-05] MEDS ORDERED: Naloxone 0.4 MG/ML INJ IVP PRN (14:48)
[2019-06-05] MEDS ORDERED: Ondansetron 4 MG/2 ML VIAL IVP PRN (14:48)
[2019-06-05 15:38] LABS: INR 2.9
[2019-06-05] MEDS ORDERED: *HR* Metoprolol 5 MG/5 ML VIAL IVP PRN (16:17)
[2019-06-05] MEDS: Furosemide 40 MG/4 ML VIAL IVP SCH (17:37)
[2019-06-05] MEDS ORDERED: *HR* Warfarin 1 MG TABLET PO ONE (18:00)
[2019-06-05] MEDS ORDERED: Warfarin perPT PO PRN (18:00)
[2019-06-05] MEDS: hydrALAZINE 25 MG TABLET PO SCH (19:49)
[2019-06-05] MEDS: Melatonin 3 MG TABLET PO SCH (19:49)
[2019-06-05] MEDS: Gabapentin 300 MG CAPSULE PO SCH (19:49)
[2019-06-06 01:38] LABS: Basophils % 0.2 %; Eosinophils # 0.1 K/mcL (0.0-0.6); Eosinophils % 1.1 %; Hematocrit 28.4 % (35.3-44.9); Hemoglobin 9.3 g/dL (11.5-15.4); Immature Granulocytes % 0.4 % (0-4); Lymphocytes # 1.1 K/mcL (0.6-4.6); Lymphocytes % 13.7 %; Mean Corpuscular HGB Conc 32.7 g/dL (31.6-35.5); Mean Corpuscular Hemoglobin 31.3 pg (28.0-33.3); Mean Corpuscular Volume 95.6 fL (83.0-100.0); Mean Platelet Volume 9.5 fL (9.4-12.4); Monocytes # 0.9 K/mcL (0.0-1.3); Monocytes % 11.6 %; Neutrophils # 5.9 K/mcL (1.6-8.9); Platelet Count 229 K/mcL (140-400); Red Blood Count 2.97 M/mcL (3.82-4.97); Red Cell Distribution Width 14.6 % (11.5-14.5)
[2019-06-06 01:46] LABS: INR 3.3; Prothrombin Time 37.5 Seconds (9.4-12.1)
[2019-06-06 01:58] LABS: Calcium 8.7 mg/dL (8.6-10.3); Magnesium 1.9 mg/dL (1.6-2.6); Phosphorous 3.1 mg/dL (2.7-4.5)
[2019-06-06] MEDS ORDERED: Furosemide 40 MG TABLET PO SCH (09:00)
[2019-06-06] MEDS: hydrALAZINE 25 MG TABLET PO SCH ×2 (09:00→21:49)
[2019-06-06] MEDS: Cholecalciferol (D-3) 1,000 UNIT (25MCG) TABLET PO SCH (09:00)
[2019-06-06] MEDS: Isosorbide MONOnitrate (24 HR) 30 MG TAB.ER.24H PO SCH (09:02)
[2019-06-06] MEDS: Isosorbide MONOnitrate (24 HR) 60 MG TAB.ER.24H PO SCH (09:02)
[2019-06-06] MEDS: amLODIPine 5 MG TABLET PO SCH (09:02)
[2019-06-06] MEDS: Loratadine 10 MG TABLET PO SCH (09:02)
[2019-06-06] MEDS: Gabapentin 300 MG CAPSULE PO SCH ×2 (09:02→21:50)
[2019-06-06] MEDS: Fluticasone Propionate Nasal 50 MCG/SPRAY BOTTLE NS SCH (09:03)
[2019-06-06] MEDS: Furosemide 40 MG/4 ML VIAL IVP SCH ×2 (09:03→16:50)
[2019-06-06] MEDS: Spironolactone 25 MG TABLET PO SCH (12:53)
[2019-06-06] MEDS: Melatonin 3 MG TABLET PO SCH (21:49)
[2019-06-06] MEDS: Metoprolol 100 MG TABLET PO SCH (21:50)
[2019-06-07] MEDS: amLODIPine 5 MG TABLET PO SCH (08:19)
[2019-06-07] MEDS: Gabapentin 300 MG CAPSULE PO SCH ×2 (08:19→20:49)
[2019-06-07] MEDS: Furosemide 40 MG/4 ML VIAL IVP SCH (08:19)
[2019-06-07] MEDS: Metoprolol 100 MG TABLET PO SCH ×2 (08:19→20:49)
[2019-06-07] MEDS: Cholecalciferol (D-3) 1,000 UNIT (25MCG) TABLET PO SCH (08:19)
[2019-06-07] MEDS: Isosorbide MONOnitrate (24 HR) 60 MG TAB.ER.24H PO SCH (08:19)
[2019-06-07] MEDS: hydrALAZINE 25 MG TABLET PO SCH ×2 (08:20→20:49)
[2019-06-07] MEDS: Isosorbide MONOnitrate (24 HR) 30 MG TAB.ER.24H PO SCH (08:20)
[2019-06-07] MEDS: Loratadine 10 MG TABLET PO SCH (08:20)
[2019-06-07] MEDS: Spironolactone 25 MG TABLET PO SCH (08:20)
[2019-06-07] MEDS: Fluticasone Propionate Nasal 50 MCG/SPRAY BOTTLE NS SCH (08:27)
[2019-06-07 08:33] LABS: Basophils % 0.4 %; Eosinophils # 0.1 K/mcL (0.0-0.6); Eosinophils % 2.2 %; Hematocrit 29.8 % (35.3-44.9); Hemoglobin 9.5 g/dL (11.5-15.4); Immature Granulocytes % 0.4 % (0-4); Lymphocytes # 1.4 K/mcL (0.6-4.6); Mean Corpuscular HGB Conc 31.9 g/dL (31.6-35.5); Mean Corpuscular Hemoglobin 30.9 pg (28.0-33.3); Mean Corpuscular Volume 97.1 fL (83.0-100.0); Mean Platelet Volume 9.9 fL (9.4-12.4); Monocytes # 0.8 K/mcL (0.0-1.3); Neutrophils # 3.1 K/mcL (1.6-8.9); Platelet Count 241 K/mcL (140-400); Red Blood Count 3.07 M/mcL (3.82-4.97); Red Cell Distribution Width 14.7 % (11.5-14.5); White Blood Count 5.5 K/mcL (4.3-11.1)
[2019-06-07 08:36] LABS: INR 2.4; Prothrombin Time 27.6 Seconds (9.4-12.1)
[2019-06-07 08:54] LABS: Potassium 3.9 mEq/L (3.5-5.1)
[2019-06-07 09:15] LABS: Folate 17.6 ng/mL (3.0-16.0)
[2019-06-07] MEDS ORDERED: Lidocaine Viscous Oral Soln 15 ML SOLUTION MM PRN (10:15)
[2019-06-07] MEDS ORDERED: 0.9 % Sodium Chloride 500 ML IVC ONE (10:16)
[2019-06-07] MEDS: *HR* FentaNYL (PF) 100 MCG/2 ML VIAL IVP PRN ×2 (10:55→11:10)
[2019-06-07] MEDS: *HR* Midazolam HCl 5 MG/5 ML VIAL IVP PRN ×2 (10:55→11:10)
[2019-06-07] MEDS ORDERED: *HR* Digoxin 0.5 MG/2 ML AMPUL IVP SCH (12:58)
[2019-06-07] MEDS ORDERED: *HR* Digoxin 0.5 MG/2 ML AMPUL IVP ONE (13:09)
[2019-06-07] MEDS ORDERED: *HR* Warfarin 3 MG TABLET PO ONE (18:00)
[2019-06-07] MEDS: *HR* Digoxin 0.5 MG/2 ML AMPUL IVP SCH (18:58)
[2019-06-07] MEDS ORDERED: Acetaminophen 325 MG TABLET PO ONE (20:25)
[2019-06-07] MEDS: Melatonin 3 MG TABLET PO SCH (20:49)
[2019-06-08] MEDS: *HR* Digoxin 0.5 MG/2 ML AMPUL IVP SCH (02:05)
[2019-06-08 05:22] LABS: INR 2.2; Prothrombin Time 25.2 Seconds (9.4-12.1)
[2019-06-08 05:24] LABS: Basophils % 0.3 %; Eosinophils # 0.1 K/mcL (0.0-0.6); Eosinophils % 1.8 %; Hematocrit 29.9 % (35.3-44.9); Hemoglobin 9.5 g/dL (11.5-15.4); Immature Granulocytes % 0.5 % (0-4); Lymphocytes # 1.4 K/mcL (0.6-4.6); Lymphocytes % 22.4 %; Mean Corpuscular HGB Conc 31.8 g/dL (31.6-35.5); Mean Corpuscular Hemoglobin 30.7 pg (28.0-33.3); Mean Corpuscular Volume 96.8 fL (83.0-100.0); Mean Platelet Volume 9.8 fL (9.4-12.4); Monocytes # 0.8 K/mcL (0.0-1.3); Monocytes % 12.4 %; Neutrophils # 3.8 K/mcL (1.6-8.9); Platelet Count 246 K/mcL (140-400); Red Blood Count 3.09 M/mcL (3.82-4.97); Red Cell Distribution Width 14.5 % (11.5-14.5); Segmented Neutrophils % 62.6 %
[2019-06-08 05:35] LABS: Potassium 4.3 mEq/L (3.5-5.1)
[2019-06-08] MEDS ORDERED: Furosemide 40 MG TABLET PO SCH (09:00)
[2019-06-08] MEDS: Isosorbide MONOnitrate (24 HR) 30 MG TAB.ER.24H PO SCH (09:36)
[2019-06-08] MEDS: Loratadine 10 MG TABLET PO SCH (09:36)
[2019-06-08] MEDS: Isosorbide MONOnitrate (24 HR) 60 MG TAB.ER.24H PO SCH (09:36)
[2019-06-08] MEDS: hydrALAZINE 25 MG TABLET PO SCH ×2 (09:36→21:33)
[2019-06-08] MEDS: Metoprolol 100 MG TABLET PO SCH ×2 (09:37→21:33)
[2019-06-08] MEDS: Gabapentin 300 MG CAPSULE PO SCH ×2 (09:37→21:33)
[2019-06-08] MEDS: amLODIPine 5 MG TABLET PO SCH (09:37)
[2019-06-08] MEDS: Spironolactone 25 MG TABLET PO SCH (09:37)
[2019-06-08] MEDS: Cholecalciferol (D-3) 1,000 UNIT (25MCG) TABLET PO SCH (09:37)
[2019-06-08] MEDS: Fluticasone Propionate Nasal 50 MCG/SPRAY BOTTLE NS SCH (09:42)
[2019-06-08] MEDS ORDERED: *HR* Warfarin 3 MG TABLET PO ONE (18:00)
[2019-06-08] MEDS: Melatonin 3 MG TABLET PO SCH (21:32)
[2019-06-08] MEDS: DiphenhydraMINE CREAM 28.4 GM TUBE TP PRN (23:23)
[2019-06-09 03:31] LABS: Basophils % 0.3 %; Eosinophils # 0.1 K/mcL (0.0-0.6); Eosinophils % 1.6 %; Hematocrit 29.8 % (35.3-44.9); Hemoglobin 9.2 g/dL (11.5-15.4); Immature Granulocytes % 0.3 % (0-4); Lymphocytes # 1.7 K/mcL (0.6-4.6); Lymphocytes % 25.4 %; Mean Corpuscular HGB Conc 30.9 g/dL (31.6-35.5); Mean Corpuscular Hemoglobin 30.4 pg (28.0-33.3); Mean Corpuscular Volume 98.3 fL (83.0-100.0); Mean Platelet Volume 9.6 fL (9.4-12.4); Monocytes # 0.8 K/mcL (0.0-1.3); Monocytes % 12.1 %; Platelet Count 235 K/mcL (140-400); Red Blood Count 3.03 M/mcL (3.82-4.97); Red Cell Distribution Width 14.4 % (11.5-14.5); Segmented Neutrophils % 60.3 %; White Blood Count 6.7 K/mcL (4.3-11.1)
[2019-06-09 03:47] LABS: INR 2.3; Prothrombin Time 26.1 Seconds (9.4-12.1)
[2019-06-09 03:50] LABS: Calcium 9.2 mg/dL (8.6-10.3)
[2019-06-09] MEDS: Isosorbide MONOnitrate (24 HR) 30 MG TAB.ER.24H PO SCH (08:04)
[2019-06-09] MEDS: Cholecalciferol (D-3) 1,000 UNIT (25MCG) TABLET PO SCH (08:04)
[2019-06-09] MEDS: Metoprolol 100 MG TABLET PO SCH ×2 (08:05→21:31)
[2019-06-09] MEDS: Gabapentin 300 MG CAPSULE PO SCH ×2 (08:05→21:31)
[2019-06-09] MEDS: Isosorbide MONOnitrate (24 HR) 60 MG TAB.ER.24H PO SCH (08:05)
[2019-06-09] MEDS: amLODIPine 5 MG TABLET PO SCH (08:05)
[2019-06-09] MEDS: hydrALAZINE 25 MG TABLET PO SCH ×2 (08:05→21:31)
[2019-06-09] MEDS: Loratadine 10 MG TABLET PO SCH (08:05)
[2019-06-09] MEDS: Fluticasone Propionate Nasal 50 MCG/SPRAY BOTTLE NS SCH (08:10)
[2019-06-09] MEDS ORDERED: *HR* Digoxin 0.125 MG TABLET PO SCH (09:00)
[2019-06-09] MEDS ORDERED: Furosemide 20 MG/2 ML VIAL IVP ONE (09:34)
[2019-06-09] MEDS: Acetaminophen 325 MG TABLET PO PRN (16:03)
[2019-06-09] MEDS ORDERED: *HR* Warfarin 1 MG TABLET PO ONE (18:00)
[2019-06-09] MEDS: Melatonin 3 MG TABLET PO SCH (21:31)
[2019-06-10 04:56] LABS: Basophils % 0.2 %; Eosinophils # 0.1 K/mcL (0.0-0.6); Hemoglobin 9.4 g/dL (11.5-15.4); Immature Granulocytes % 0.3 % (0-4); Lymphocytes # 1.7 K/mcL (0.6-4.6); Lymphocytes % 27.1 %; Mean Corpuscular HGB Conc 31.3 g/dL (31.6-35.5); Mean Corpuscular Volume 95.8 fL (83.0-100.0); Mean Platelet Volume 9.6 fL (9.4-12.4); Monocytes % 16.3 %; Neutrophils # 3.3 K/mcL (1.6-8.9); Platelet Count 248 K/mcL (140-400); Red Blood Count 3.13 M/mcL (3.82-4.97); Red Cell Distribution Width 14.7 % (11.5-14.5); Segmented Neutrophils % 54.1 %; White Blood Count 6.1 K/mcL (4.3-11.1)
[2019-06-10 05:03] LABS: INR 2.3; Prothrombin Time 26.2 Seconds (9.4-12.1)
[2019-06-10 05:17] LABS: BUN/Creatinine Ratio 23 (6-26); Blood Urea Nitrogen 24 mg/dL (8-23); Calcium 8.8 mg/dL (8.6-10.3); Carbon Dioxide 32 mEq/L (23-29); Chloride 100 mEq/L (98-107); Glucose 113 mg/dL (70-105); Osmolality,Calculated 297 (280-300); Potassium 3.9 mEq/L (3.5-5.1); Sodium 141 mEq/L (136-145); eGFR For African Americans > 60 (> 60); eGFR For Non-African Americans 50 (> 60)
[2019-06-10] MEDS: Cholecalciferol (D-3) 1,000 UNIT (25MCG) TABLET PO SCH (10:30)
[2019-06-10] MEDS: Gabapentin 300 MG CAPSULE PO SCH ×2 (10:30→21:44)
[2019-06-10] MEDS: Loratadine 10 MG TABLET PO SCH (10:30)
[2019-06-10] MEDS: hydrALAZINE 25 MG TABLET PO SCH ×2 (10:31→21:43)
[2019-06-10] MEDS: Isosorbide MONOnitrate (24 HR) 60 MG TAB.ER.24H PO SCH (10:31)
[2019-06-10] MEDS: Isosorbide MONOnitrate (24 HR) 30 MG TAB.ER.24H PO SCH (10:31)
[2019-06-10] MEDS: *HR* Digoxin 0.125 MG TABLET PO SCH (10:31)
[2019-06-10] MEDS: Metoprolol 100 MG TABLET PO SCH ×2 (10:31→21:44)
[2019-06-10] MEDS: Spironolactone 25 MG TABLET PO SCH (10:32)
[2019-06-10] MEDS: Furosemide 20 MG TABLET PO SCH (10:32)
[2019-06-10] MEDS: amLODIPine 5 MG TABLET PO SCH (10:32)
[2019-06-10] MEDS: Fluticasone Propionate Nasal 50 MCG/SPRAY BOTTLE NS SCH (10:32)
[2019-06-10] MEDS ORDERED: Perflutren Lipid Microsphere 1.3 ML in 0.9 % Sodium Chloride 8.7 ML IVP ONE (17:11)
[2019-06-10] MEDS ORDERED: *HR* Warfarin 1 MG TABLET PO ONE (18:00)
[2019-06-10] MEDS: Melatonin 3 MG TABLET PO SCH (21:43)
[2019-06-10] MEDS: Acetaminophen 325 MG TABLET PO PRN (21:43)
[2019-06-11 02:43] LABS: Basophils % 0.1 %; Eosinophils # 0.1 K/mcL (0.0-0.6); Eosinophils % 1.6 %; Hematocrit 29.1 % (35.3-44.9); Hemoglobin 9.1 g/dL (11.5-15.4); Immature Granulocytes % 0.3 % (0-4); Lymphocytes # 1.8 K/mcL (0.6-4.6); Lymphocytes % 25.3 %; Mean Corpuscular HGB Conc 31.3 g/dL (31.6-35.5); Mean Corpuscular Hemoglobin 30.6 pg (28.0-33.3); Mean Platelet Volume 9.8 fL (9.4-12.4); Monocytes # 1.1 K/mcL (0.0-1.3); Monocytes % 15.6 %; Platelet Count 238 K/mcL (140-400); Red Blood Count 2.97 M/mcL (3.82-4.97); Red Cell Distribution Width 14.6 % (11.5-14.5); Segmented Neutrophils % 57.1 %
[2019-06-11 02:46] LABS: INR 2.4; Prothrombin Time 27.8 Seconds (9.4-12.1)
[2019-06-11 03:06] LABS: BUN/Creatinine Ratio 24 (6-26); Blood Urea Nitrogen 22 mg/dL (8-23); Calcium 8.8 mg/dL (8.6-10.3); Carbon Dioxide 25 mEq/L (23-29); Chloride 103 mEq/L (98-107); Glucose 105 mg/dL (70-105); Osmolality,Calculated 286 (280-300); Potassium 3.9 mEq/L (3.5-5.1); Sodium 136 mEq/L (136-145); eGFR For African Americans > 60 (> 60); eGFR For Non-African Americans 57 (> 60)
[2019-06-11 07:27] VITALS: BP 151/66
[2019-06-11] MEDS: Fluticasone Propionate Nasal 50 MCG/SPRAY BOTTLE NS SCH (10:26)
[2019-06-11] MEDS: DiphenhydraMINE CREAM 28.4 GM TUBE TP PRN (10:26)
[2019-06-11] MEDS: Isosorbide MONOnitrate (24 HR) 60 MG TAB.ER.24H PO SCH (10:27)
[2019-06-11] MEDS: amLODIPine 5 MG TABLET PO SCH (10:27)
[2019-06-11] MEDS: Furosemide 20 MG TABLET PO SCH (10:27)
[2019-06-11] MEDS: Loratadine 10 MG TABLET PO SCH (10:27)
[2019-06-11] MEDS: *HR* Digoxin 0.125 MG TABLET PO SCH (10:27)
[2019-06-11] MEDS: Metoprolol 100 MG TABLET PO SCH (10:28)
[2019-06-11] MEDS: Gabapentin 300 MG CAPSULE PO SCH (10:28)
[2019-06-11] MEDS: hydrALAZINE 25 MG TABLET PO SCH (10:28)
[2019-06-11] MEDS: Cholecalciferol (D-3) 1,000 UNIT (25MCG) TABLET PO SCH (10:28)
[2019-06-11] MEDS: Spironolactone 25 MG TABLET PO SCH (10:28)
[2019-06-11] MEDS: Isosorbide MONOnitrate (24 HR) 30 MG TAB.ER.24H PO SCH (10:28)
[2019-06-11] MEDS: Acetaminophen 325 MG TABLET PO PRN (15:43)
[2019-06-11] MEDS ORDERED: *HR* Warfarin 3 MG TABLET PO ONE (18:00)
== END 2019-06-11 19:17 | disposition home health service (06) | DRG 291 ==
LOC: EMEROOARM 07:57 → 2NENU 07:57 → SUATTDRO 14:07 → 2NENU 15:29
PROVIDERS: ADMIT Student in an Organized Health Care Education/Training Program; ATTEND Pharmacist